=== PATIENT | male | born 1945 | race Caucasian/White ===

== ENCOUNTER 2023-04-29 13:25 | Emergency (ER) | payer BC, SELFPAY ==
[2023-04-29 13:28] VITALS: BP 114/68
[2023-04-29] MEDS: NSS 1000 IV (13:54)
[2023-04-29 14:00] LABS: % Basophils 0.7 % (0-2); % Eosinophils 1.2 % (0-6); % Immature Granulocytes 0.4 % (0-0.5); % Lymphocytes 18.4 % (20.5-51.1); % Monocytes 7.7 % (1.7-9.3); % Neutrophils 71.6 % (42.2-75.2); Absolute Basophils 0.1 10^3/uL (0-0.2); Absolute Eosinophils 0.1 10^3/uL (0-0.7); Absolute Lymphocytes 1.4 10^3/uL (1.2-3.4); Absolute Monocytes 0.6 10^3/uL (0.1-0.6); Absolute Neutrophils 5.4 10^3/uL (1.4-6.5); Hematocrit 34.5 % (39.0-52.0); Hemoglobin 11.5 g/dL (13.0-18.0); Mean Corp Hgb Conc. 33.3 g/dL (33.0-37.0); Mean Corpuscular Hgb 29.1 pg (27.0-31.0); Mean Corpuscular Volume 87.3 fL (80.0-94.0); Mean Platelet Volume 9.6 fL (7.4-10.4); Nucleated Red Blood Cells % 0 % (-); Platelet Count 416 10^3/uL (130-400); Red Blood Cell Count 3.95 10^6/uL (4.70-6.10); Red Cell Dist. Width 18.3 % (11.5-14.5); White Blood Cell Count 7.6 10^3/uL (4.8-10.8)
[2023-04-29 14:11] LABS: ALT (SGPT) 36 U/L (0-50); AST (SGOT) 36 U/L (17-59); Albumin 3.5 g/dl (3.5-5.0); Alkaline Phosphatase 153 U/L (38-126); Blood Urea Nitrogen 13 mg/dl (9-20); Carbon Dioxide 27 mmol/L (22-30); Chloride 96 mmol/L (98-107); Glucose 75 mg/dl (70-99); Potassium 4.9 mmol/L (3.5-5.1); Sodium 129 mmol/L (135-145); Total Bilirubin 0.4 mg/dl (0.2-1.3); Total Protein 7.3 g/dl (6.3-8.2); eGFR > 60.00
[2023-04-29 16:12] VITALS: BP 120/68
[2023-04-29 17:00] VITALS: BP 120/71
--- NOTE | 2023-04-29 17:36 | ED.GENMED ---
History of Present Illness
General
Chief Complaint: Dehydration Symptoms
Source: patient
Exam Limitations: none
Time Seen by Provider: 04/29/23 17:12
Travel History
Have you had any contact with someone who has COVID-19?: No
Do you have any symptoms of coronavirus? Fever > 100 degrees, chills, cough, shortness of breath, sore throat, loss of taste or smell, muscle aches, or headache?: No
History of Present Illness
History of Present Illness:
77-year-old male with history of stomach cancer has feeding tube and OBED drain presents with episode of weakness today with nausea. He has been having difficulty with his feeds through his tube causing indigestion. He has not been giving himself
enough nutrition at home. Visiting nurse came today had an episode of this nausea and was sent here for further evaluation no chest pain or shortness of breath. Has been waiting quite some time and since waiting he did receive a bag of fluids and
since then he is feeling much better and has complaints offered.
Past History
Past History
ED Past Medical History: CAD, Cancer (Esophageal and stomach), HTN, Hypercholesterolemia, Hypothyroidism and Other (Anemia)
ED Past Surgical History: None, Cardiac (Stents X 6), Orthopedic ([place] rotator cuff , left knee surgery, ORIF L ankle, ) and Other (Hernia, G- tube, Port, Laparotomy)
Social History
Tobacco: Former smoker
Alcohol: None
Drug: None
Personal:
Living: with family
Phy Exam
Physical Exam
Physical Exam:
General: Slightly cachectic appearing male no acute respiratory distress
HEENT: Normocephalic atraumatic heart: Regular rate and rhythm no murmurs
Lungs: Clear to auscultation bilaterally no wheezing
Abdomen: Soft nontender PEG tube noted OBED drain noted extremities: No cyanosis
Skin: Warm no rash
Course
Orders/Labs/Results
Orders:
Orders
04/29/23 13:31
EKG [Electrocardiogram (*1)] Urgent
Reason for Study: Fatigue / Weakness
EKG- Treatment ONCE
04/29/23 13:33
0.9% Sodium Chloride 1000 ml [Nss] 1,000 ml IV BOLUS
04/29/23 13:52
Complete Blood Count/With Diff Urgent
Comprehensive Metabolic Panel Urgent
04/29/23 17:46
Urinalysis Reflex To Culture Urgent
Date Specimen was Collected: 04/29/23
Time Specimen was Collected: 17:29
Abnormal Lab Results
04/29/23
13:52
RBC 3.95 L 10^6/uL
(4.70-6.10)
Hgb 11.5 L g/dL
(13.0-18.0)
Hct 34.5 L %
(39.0-52.0)
RDW 18.3 H %
(11.5-14.5)
Plt Count 416 H 10^3/uL
(130-400)
Lymphocytes % 18.4 L %
(20.5-51.1)
Sodium 129 L mmol/L
(135-145)
Chloride 96 L mmol/L
(98-107)
Creatinine 0.6 L mg/dL
(0.7-1.3)
Alkaline Phosphatase 153 H U/L
(38-126)
04/29/23 13:52
04/29/23 13:52
Vital Signs
Initial and Last Documented VS:
Initial Vital Signs
Temp Pulse Resp BP Pulse Ox
98.7 F 75 18 114/68 97
04/29/23 13:28 04/29/23 13:28 04/29/23 13:28 04/29/23 13:28 04/29/23 13:28
Last Documented Vital Signs
Temp Pulse Resp BP Pulse Ox
98.7 F 75 18 118/74 97
04/29/23 13:28 04/29/23 13:28 04/29/23 13:28 04/29/23 18:00 04/29/23 18:15
MDM/Problems Addressed
Differential Diagnosis Includes:
Episode of weakness and nausea today now feeling much better after IV hydration. He did have some dysuria this morning. Will check urinalysis. Labs otherwise without significant finding. I suspect underlying dehydration given his lack of feeds
over the last 2 days.
*Critical Care Note
Total Time (30-74mins, 75-104mins- exclusive of procedures): Not Applicable
Update Note
Update Note:
Urinalysis negative. Reassuring workup here otherwise. Patient was dehydrated but not feeling much better after IV hydration. Stable for discharge
ED Attending Note
-
Portions of this chart may have been created with voice recognition software.� Occasional wrong word or��sound alike� substitutions may have occurred due to the inherent limitations of voice recognition software.
Discharge Plan
Departure
Patient Disposition: Home (Routine Discharge)
Date of Disposition: 04/29/23
Time of Disposition: 18:45
Patient with high blood pressure during this ER visit?: No
Discharge Problem:
Dehydration
Instructions: Dehydration, Adult (DC)
Prescriptions:
No Action
levothyroxine [Synthroid] 50 MCG tablet
50 mcg feeding tube DAILY
rosuvastatin 20 mg Tablet
20 mg feeding tube HS
pantoprazole 40 mg Tablet,Delayed Release (Dr/Ec)
40 mg PO DAILY
Rx Instructions:
04/11/2023, via feeding tube.
allopurinol 300 mg Tablet
300 mg feeding tube DAILY
aspirin 81 mg Tablet,Delayed Release (Dr/Ec)
81 mg feeding tube DAILY
polyethylene glycol 3350 [Miralax] 17 gram Powder In Packet
17 g feeding tube DAILY PRN (Reason: constipation)
sucralfate 100 mg/mL Suspension
10 ml PO BID PRN (Reason: ulcer)
Rx Instructions:
04/11/2023, taken PO.
ondansetron 8 mg Tablet,Disintegrating
8 mg feeding tube Q12H PRN (Reason: nausea)
oxycodone 5 mg Tablet
5 mg feeding tube HS
Patient Comments:
04/11/2023, pt. filled this medication on 04/03/2023 for 28 tablets according to PDMP.
metoprolol tartrate 25 mg Tablet
25 mg feeding tube BID
Tylenol liquid
1 dose feeding tube Q6HPRN PRN (Reason: mild pain)
Referrals:
Geovanni Gruber MD [Family Provider] -
Activity Restrictions/Additional Instructions:
Stay hydrated. Continue with your feedings. Return if worse otherwise follow-up with your specialist
Interventions
Interventions:
*Risk Screen - Suicide Last Done: 04/29/23 13:28
*General Assessment Last Done: 04/29/23 13:28
*Neglect/Abuse Screening Last Done: 04/29/23 13:28
*ED COVID-19 Vaccine History Last Done: 04/29/23 13:28
ED- Cardiac Assessment Last Done: 04/29/23 16:13
ED- Neurological Assessment Last Done: 04/29/23 16:13
ED- Pulmonary Assessment Last Done: 04/29/23 16:13
[2023-04-29 18:00] VITALS: BP 118/74
[2023-04-29 18:05] LABS: Urine Albumin Negative (Neg - Trace); Urine Bilirubin Negative (Negative); Urine Character Slightly Cloudy (Clear); Urine Color Yellow; Urine Glucose Negative (Negative); Urine Ketone Negative (Negative); Urine Leukocyte Negative (Negative); Urine Nitrite Negative (Negative); Urine Occult Blood Negative (Negative); Urine Specific Gravity 1.015 (<1.030); Urine Urobilinogen Negative (Neg - 1+)
== END 2023-04-29 18:54 | disposition home or self-care (01) ==
LOC: EMR 13:25
PROVIDERS: Emergency Medicine; Physician Assistant; EMERGENCY PHYSICIAN Emergency Medicine; FAMILY PHYSICIAN Internal Medicine Geriatric Medicine
DX: E86.0 Dehydration (principal); Z87.891 Personal history of nicotine dependence
CPT/HCPCS: 99284; 96360; 96361; 80053; 81003; 85025; 93005

== ENCOUNTER 2023-07-07 20:04 | Inpatient (IN) | payer MEDICARE, BC, SELFPAY ==
[2023-07-07] VITALS (7 sets, daily range): BP systolic 118–150; BP diastolic 71–93; BMI 23.5
[2023-07-07 14:42] LABS: Glucose - Point of Care 54 mg/dl (70-99)
--- NOTE | 2023-07-07 14:55 | ED.GENMED ---
History of Present Illness
General
Chief Complaint: Blood Sugar Problem
Source: patient and family
Exam Limitations: none
Time Seen by Provider: 07/07/23 14:43
Nursing documentation reviewed up to this point in time: agreed with
Travel History
Have you had any contact with someone who has COVID-19?: No
Do you have any symptoms of coronavirus? Fever > 100 degrees, chills, cough, shortness of breath, sore throat, loss of taste or smell, muscle aches, or headache?: No
History of Present Illness
History of Present Illness:
77-year-old male presents to the emergency department complaining of dizziness. He had low blood sugar yesterday that was in the 20s, and was called to come to the emergency department today. He has a history of gastric cancer, and was on TPN.
Past History
Past History
ED Past Medical History: CAD, Cancer (Esophageal and stomach), HTN, Hypercholesterolemia, Hypothyroidism and Other (Anemia)
ED Past Surgical History: None, Cardiac (Stents X 6), Orthopedic ([place] rotator cuff , left knee surgery, ORIF L ankle, ) and Other (Hernia, G- tube, Port, Laparotomy)
Social History
Tobacco: Former smoker
Alcohol: None
Drug: None
Personal:
Living: with family
Review of Systems
Review of Systems
Allergies reviewed?: Yes
All Other Systems: Not applicable
Constitutional: Reports no symptoms
EENT: Reports no symptoms
Respiratory: Reports no symptoms
Cardiac: Reports no symptoms
ABD/GI: Reports no symptoms
: Reports no symptoms
Musculoskeletal: Reports no symptoms
Skin: Reports no symptoms
Neurological: Reports weakness and numbness
Endocrine: Reports no symptoms
Hematologic/Lymphatic: Reports no symptoms
Psychiatric: Reports no symptoms
Phy Exam
Physical Exam
Physical Exam:
Physical Exam
General: no apparent distress, not acutely ill
Neck: supple. no meningeal signs. normal posterior pharynx
Heart: s1/s2 regular rate and rhythm, no murmur. equal radial
pulses.
HEENT: Pupils equal round reactive to light, EOMI
Lungs: no acute respiratory distress. clear bilaterally
Abdomen: normal bowel sounds. not tender. no CVAT, healing left-sided gastrostomy tube site
Neuro: alert and oriented. no focal neurological deficits cranial nerves II through XII intact
Skin: no rash
Psychiatric: well kept. interactive and cooperative
Extremities: no edema. no calf tenderness. negative homans. good distal pulses
Course
Orders/Labs/Results
Orders:
Orders
07/07/23
Electrocardiogram (*1) Stat
Comment: ALREADY DONE
07/07/23 14:47
CBC/With Diff [Complete Blood Count/With Diff] Urgent
CMP [Comprehensive Metabolic Panel] Urgent
Troponin I Urgent
07/07/23 16:05
Glucose Urgent
07/07/23 18:35
Dextrose 50%-Water [Dextrose 50% Syringe] 25 grams IV NOW STA
07/07/23 19:36
Admit/Transfer Patient As Directed
Co-Sign Provider:
Level of Care: Inpatient admission
Assign to:: Medical/Surgical
Physician / Group: shara meza
Diagnosis: Recurrent hypoglycemia unclear
Reason for Hospitalization: Recurrent hypoglycemia, unclear
Expected length of stay greater than two midnights?: Yes
ELOS- Estimated Length of Stay in days: 3
I certify the patient meets the requirements for IP care: Yes
07/07/23 19:44
Cortisol, Random Routine
07/07/23 19:46
Code Status As Directed
Resuscitation Status: Full Code
07/07/23 20:00
Dextrose 5%/0.9%Sodchl 1000 ml [D5/0.9% Sodium Chloride] 1,000 ml IV 60 mls/hr
Abnormal Lab Results
07/07/23 07/07/23 07/07/23
14:38 14:47 15:23
RBC 3.57 L 10^6/uL
(4.70-6.10)
Hgb 11.1 L g/dL
(13.0-18.0)
Hct 33.4 L %
(39.0-52.0)
MCH 31.1 H pg
(27.0-31.0)
RDW 18.1 H %
(11.5-14.5)
MPV 12.0 H fL
(7.4-10.4)
Absolute Monos (auto) 0.9 H 10^3/uL
(0.1-0.6)
Lymphocytes % 18.2 L %
(20.5-51.1)
Monocytes % 13.1 H %
(1.7-9.3)
BUN 26 H mg/dl
(9-20)
Creatinine 0.4 L mg/dL
(0.7-1.3)
Glucose 33 L* mg/dl
(70-99)
Albumin 3.4 L g/dl
(3.5-5.0)
POC Glucose 54 L* mg/dl 69 L mg/dl
(70-99) (70-99)
07/07/23 07/07/23
18:33 19:09
RBC
Hgb
Hct
MCH
RDW
MPV
Absolute Monos (auto)
Lymphocytes %
Monocytes %
BUN
Creatinine
Glucose
Albumin
POC Glucose 65 L mg/dl 145 H mg/dl
(70-99) (70-99)
07/07/23 14:47
07/07/23 16:05
Vital Signs
Initial and Last Documented VS:
Initial Vital Signs
Temp Pulse Resp BP Pulse Ox
98.5 F 75 18 120/73 96
07/07/23 14:45 07/07/23 14:45 07/07/23 14:45 07/07/23 14:45 07/07/23 14:45
Last Documented Vital Signs
Temp Pulse Resp BP Pulse Ox
98.5 F 0 18 150/86 99
07/07/23 14:45 07/07/23 19:15 07/07/23 14:45 07/07/23 19:00 07/07/23 18:51
MDM/Problems Addressed
Differential Diagnosis Includes:
Hypoglycemia, dysrhythmia
MDM/Problems Addressed:
77-year-old male with hypoglycemia, due to poor absorption and TPN likely not sufficient. Admit to hospitalist.
Chronic conditions affecting care: Previous abdomnial surgery and Cancer
Acute Exacerbation and/or Progression of Chronic Illness: Previous abdomnial surgery and Cancer
*Pulse Oximetry
Patient hypoxic: no
*EKG
Interpreted by ED Provider?: Yes
EKG Intrepretation Date: 07/07/23
EKG Intrepretation Time: 14:46
Interpretation: normal
Comparison EKG: no changes
Heart Rate: 76
Rate: normal
Rhythm: sinus
Russell: normal axis
Interval: normal interval
QRS Pattern: normal QRS
Ischemia: no ischemia
*Director Vaccine Interpretation
Rate: normal
Interpretation: normal
Heart Rate: 76
Rhythm: sinus
*Critical Care Note
Total Time (30-74mins, 75-104mins- exclusive of procedures): Not Applicable
Patient Management
Social determinants of health affecting care: Living situation
Discussion with other providers: Hospitalist
Escalation/DeEscalation of care consider admission/obs:
admit indicated
ED Attending Note
-
Portions of this chart may have been created with voice recognition software.� Occasional wrong word or��sound alike� substitutions may have occurred due to the inherent limitations of voice recognition software.
Discharge Plan
Departure
Patient Disposition: Admit
Date of Disposition: 07/07/23
Time of Disposition: 18:49
Admit to: Telemetry
Presentation/result/management discussed w/ accepting MD/DO: Hospitalist
Patient with high blood pressure during this ER visit?: Yes
Condition: Good
Discharge Problem:
Hypoglycemia, Esophageal cancer
Interventions
Interventions:
*Risk Screen - Suicide Last Done: 07/07/23 14:35
*General Assessment Last Done: 07/07/23 14:35
*Neglect/Abuse Screening Last Done: 07/07/23 14:35
ED- Fall Risk Assessment Last Done: 07/07/23 14:50
*ED COVID-19 Vaccine History Last Done: 07/07/23 14:58
ED- Neurological Assessment Last Done: 07/07/23 14:50
[2023-07-07 15:07] LABS: % Basophils 0.5 % (0-2); % Eosinophils 0.9 % (0-6); % Immature Granulocytes 0.3 % (0-0.5); % Lymphocytes 18.2 % (20.5-51.1); % Monocytes 13.1 % (1.7-9.3); Absolute Eosinophils 0.1 10^3/uL (0-0.7); Absolute Lymphocytes 1.2 10^3/uL (1.2-3.4); Absolute Monocytes 0.9 10^3/uL (0.1-0.6); Absolute Neutrophils 4.3 10^3/uL (1.4-6.5); Hematocrit 33.4 % (39.0-52.0); Hemoglobin 11.1 g/dL (13.0-18.0); Mean Corp Hgb Conc. 33.2 g/dL (33.0-37.0); Mean Corpuscular Hgb 31.1 pg (27.0-31.0); Mean Corpuscular Volume 93.6 fL (80.0-94.0); Nucleated Red Blood Cells % 0 % (-); Platelet Count 238 10^3/uL (130-400); Red Blood Cell Count 3.57 10^6/uL (4.70-6.10); Red Cell Dist. Width 18.1 % (11.5-14.5); White Blood Cell Count 6.5 10^3/uL (4.8-10.8)
[2023-07-07 15:25] LABS: Glucose - Point of Care 69 mg/dl (70-99)
[2023-07-07 15:31] LABS: ALT (SGPT) 22 U/L (0-50); AST (SGOT) 28 U/L (17-59); Albumin 3.4 g/dl (3.5-5.0); Alkaline Phosphatase 101 U/L (38-126); Blood Urea Nitrogen 26 mg/dl (9-20); Calcium 8.8 mg/dl (8.4-10.2); Carbon Dioxide 25 mmol/L (22-30); Chloride 102 mmol/L (98-107); Estimated Creatinine Clearance 98 ml/min; Glucose 33 mg/dl (70-99); Potassium 4.5 mmol/L (3.5-5.1); Sodium 135 mmol/L (135-145); Total Bilirubin 0.3 mg/dl (0.2-1.3); Total Protein 6.6 g/dl (6.3-8.2); eGFR > 60.00
[2023-07-07 15:32] LABS: Troponin I < 0.012 ng/ml
[2023-07-07 17:04] LABS: Glucose 78 mg/dl (70-99)
[2023-07-07 18:34] LABS: Glucose - Point of Care 65 mg/dl (70-99)
[2023-07-07] MEDS: DEXTROSE 50% SYRINGE 25 GRAMS IV (18:38)
--- NOTE | 2023-07-07 19:06 | PHANOTE ---
MED REC NOT- PATIENT STATED THAT HE STOPPED TAKEN CRESTOR 20MG HS CAUSE THERE WERE NO REFILLS BUT [facility] SHOWS FILLED ON 07/01/[address] WILSON
--- NOTE | 2023-07-07 19:07 | HPS.HSE ---
Family Physician
-
Family Physician: Geovanni Gruber
Chief Complaint
-
Hypoglycemia with symptoms of lightheadedness and nausea
History of Present Illness
77-year-old male from home with reported lightheadedness and nausea. He was noted to be hypoglycemic with blood sugar of 33 was given D50 IV in ER with mild improvement. He reports he has had on and off hypoglycemia since starting TPN 3 weeks ago.
He also drinks Ensure clear apple 3 times daily and is able to tolerate other foods. He has history of esophageal cancer status post stent, total gastrectomy December 2023. He had prior J-tube which was removed 2 weeks ago at [facility]. He has an open site to his abdomen that is draining bile. He applies Aquaphor around old J-tube site. He denies headache, fever, chills, chest pain, palpitations, shortness of breath, cough, abdominal pain, vomiting, diarrhea, urinary
symptoms other past medical history includes distal esophageal cancer with stent removal and replacement, current TPN, intra-abdominal abscess near spleen status post drainage March 2023, vasovagal episode secondary to dehydration, SIADH, HTN,
GERD, hematemesis, chronic GI blood loss from esophageal bleeding, iron deficiency anemia, DANICA, portal vein thrombosis, HLD, hypothyroidism, CAD status post PCI, gout
Medical History
Past Medical History
Past Medical History: Reports Other
Additional Past Medical History:
Hypoglycemic episodes June 2023 [facility]
Esophageal cancer GE junction
Chronic esophageal ulcers
Dyslipidemia
Coronary artery disease status post stent
Acquired hypothyroidism
Hypertensive heart disease without CHF
Hypertension
Gout
History of septic shock with bacteremia
Past Surgical History: Reports Other
Additional Past Surgical History:
J-tube removal June 2023 for [facility]
Total gastrectomy with esophageal jejunal bypass
Cholecystectomy
Hernia repair
Multiple EGD
Cardiac cath and multiple stent
Port right upper chest wall
Social History
Unable to obtain full social history at this time due to: Other
Tobacco: Non-smoker
Alcohol: None
Drug: None
Personal:
Living: With Family ()
Employment: Retired
Family History
Family History: Other
Allergies / Home Medications
Allergies reflects when Allergies were last updated in [facility].
Home Medications with original date entered in [facility]
Allergy/Medication List:
Allergies
Allergy/AdvReac Type Severity Reaction Status Date / Time
No Known Allergies Allergy Verified 07/07/23 14:41
Home Medications
levothyroxine 50 mcg tablet (Synthroid) 50 mcg PO DAILY Thyroid 03/04/09
allopurinol 300 mg tablet 300 mg PO DAILY Gout 08/25/22
metoprolol tartrate 25 mg tablet 25 mg PO BIDPRN PRN BLOOD PRESSURE 04/11/23
polyethylene glycol 3350 17 gram oral powder packet (Miralax) 17 g PO DAILYPRN PRN constipation 04/11/23
sucralfate 100 mg/mL oral suspension 10 ml PO QID 04/11/23
apixaban 5 mg tablet (Eliquis) 5 mg PO BID 07/07/23
cholestyramine (with sugar) 4 gram powder for susp in a packet 1 ea PO BID 07/07/23
omeprazole 40 mg capsule,delayed release 40 mg PO DAILY 07/07/23
Review of Systems
-
History Source: Patient
A 12 point ROS was completed and negative except as noted: Yes
Constitutional: Denies Fever or Chills
EENT: Reports Sore Throat (Chronic); Denies Runny Nose
Respiratory: Denies Cough or Trouble Breathing
Cardiac: Denies Chest Pain, Diaphoresis, Palpitations or Syncope
Abdomen/GI: Reports Nausea; Denies Abdominal Pain, Vomiting, Diarrhea, Constipated or Bloody Stools
: Reports Other (Chronic drainage bile from prior J-tube site); Denies Dysuria, Frequency, Flank Pain or Incontinence
Musculoskeletal: Denies Joint Pain or Edema
Skin: Denies Itching or Rash
Neurological: Reports Dizzy (With hyperglycemia); Denies Headache or Weakness
Endocrine: Reports No Symptoms
Hematologic/Lymphatic: Reports No Symptoms
Psych: Reports Calm
Physical Exam
Vital Signs
Vital Signs
Temp Pulse Resp BP Pulse Ox
98.5 F 75 18 120/73 96
07/07/23 14:45 07/07/23 14:45 07/07/23 14:45 07/07/23 14:45 07/07/23 14:45
Physical Exam
General: Comfortable and Conversant; No Pain, Fever or Chills
HEENT: NormoCephalic, Anicteric, Moist mucous membranes, PERRLA, [place] Conjunctivae and No Ptosis
Respiratory: Clear; No Wheezes, Rales or Rhonchi
Cardiac: S1/S2 and Regular Rhythm; No Murmur, Rub, Gallop or Peripheral Edema
GI: Soft, Non Tender, Non Distended, Normal Bowel Sounds and Other (Chronic drainage bile from prior J-tube site)
Rectal: Deferred by Provider
Genito-urinary: Deferred by me
Musculoskeletal: No Clubbing, No Cyanosis and No Edema
Skin: Warm, Dry and Other (Port present right upper chest wall); No Rash or Jaundice
Neuro: AO x 3, No Motor Deficits, Nonfocal/grossly intact, Cranial Nerves Intact and Other (Chronic TABLE MOUNTAIN right ear); No Slurred Speech, Facial Droop or Tremors
Psych: Calm
Laboratory Results
-
07/07/23 14:47
07/07/23 16:05
Laboratory Results
Total Bilirubin 0.3 mg/dl (0.2-1.3) 07/07/23 14:47
AST 28 U/L (17-59) 07/07/23 14:47
ALT 22 U/L (0-50) 07/07/23 14:47
Alkaline Phosphatase 101 U/L (38-126) 07/07/23 14:47
Troponin I < 0.012 ng/ml 07/07/23 14:47
Impression/Plan
-
Impression/plan:
Admit to [facility]
#Acute recurrent hypoglycemia unclear
Admitted 2 weeks ago [facility] also with hypoglycemia at that time
BS 33 > 78 post D50 25 gm IV push
-Accu-Cheks every 2 hours
-As needed IV dextrose
-D5 NSS 60 cc an hour
-Continue current TPN and Ensure alive 3 times daily
-Consult endocrine
-Consult dietary for TPN
-Consult GI for TPN
-Check random cortisol
#Distal esophageal cancer on current TPN
#History of stent placement and removal
J-tube removal 2 weeks ago June 2023 [facility]
-Follows with oncology [facility] Dr. Retana [phone]
-Patient currently on TPN, and Ensure clear apple 3 times daily
-Continue Colesytramine mixed with applesauce
#Hx intra-abdominal abscess near spleen March 2023
-Had abdominal abscess drained at [facility]
#J-tube removal with residual opening to abdomen
-Apply Aquaphor around site with 4 x 4's
#History of vasovagal episode secondary to dehydration
#Hx SIADH
NA 135
#HTN
-Continue metoprolol tartrate 25 mg twice daily
#GERD
#Hx hematemesis(chronic GI blood loss from esophageal bleeding)
History of blood transfusion March 2023
-Hgb 11.1 stable
-Follows at [facility]
-Patient has no plans for Endo recall at this time
-Continue PPI, sucralfate 10 mL p.o. 4 times daily
#Iron deficiency anemia
Hgb 11.1
#DANICA
-No current CPAP
#Portal vein thrombosis�improved on CT 12/10/2022
-Continue MANAGER STONE Eliquis
#HLD
-Continue Crestor 20 mg daily
#Hypothyroidism
-Continue levothyroxine 50 mcg daily
#CAD status post PCI
-Continue metoprolol
#Gout
-Continue allopurinol 3 mg daily
#TABLE MOUNTAIN right ear
#DVT prophylaxis
Continue MANAGER STONE Eliquis
Full code
[2023-07-07 19:11] LABS: Glucose - Point of Care 145 mg/dl (70-99)
--- NOTE | 2023-07-07 20:00 | W.PN.UPDATE ---
Update Note
Progress Note Update
This note serves as an addendum to the H&P by health editor RUKHSANA Adilene TORRESURGIS on 07/07/23
HPI
77M HX Esophageal and Gastric CA , S/p gastectomy in Dec 2022 s/p J Tube removal 2weeks ago at [facility] , currently on TPN plus Ensure clear tid and POs as tolerated pw nausea, lightheadedness associated recurent hypoglycemic episode
No prior DM, Adrenal insufficiency
PHX
- S/p gastrectomy in Dec 2022 s/p J Tube removal 2weeks ago at [facility] ,
- Hx GE junction CA with surgical /2023, prior chemo
-post-op leak with stent in place 01/2023 then revision 02/2023
-Hematemesis
-Possible 9cm intra-abd abscess on CT scan 04/12
-New liver lesion concerning for metastatic disease on CT scan 04/12
-Jtube for nutrition
-wt loss
-GERD on carafate
-CAD with stent
-HTN
-hypercholesterolemia
-hypothyroidism
-DANICA
-portal vein thrombosis improved on 11/2022 CT
Known to Surgical oncology at [facility] Dr. Retana [phone].
Reviewed VS:
Vital Signs
Temp Pulse Resp BP Pulse Ox
98.5 F 0 18 150/86 99
07/07/23 14:45 07/07/23 19:15 07/07/23 14:45 07/07/23 19:00 07/07/23 18:51
PE
Gen: Non toxic , calm , not diaphoretic
HEENT: anicteric
Neck: supple
Lungs: CTA
Cor: RRR S1 S2
Abdomen: healing left-sided gastrostomy tube site
OCEAN [employer]ING GUIDE: NFND
MS: no edema
Psych: calm
Data
Abnormal Lab Results
07/07/23 07/07/23 07/07/23
14:38 14:47 15:23
RBC 3.57 L
Hgb 11.1 L
Hct 33.4 L
MCH 31.1 H
RDW 18.1 H
MPV 12.0 H
Absolute Monos (auto) 0.9 H
Lymphocytes % 18.2 L
Monocytes % 13.1 H
BUN 26 H
Creatinine 0.4 L
Glucose 33 L*
Albumin 3.4 L
POC Glucose 54 L* 69 L
07/07/23 07/07/23
18:33 19:09
RBC
Hgb
Hct
MCH
RDW
MPV
Absolute Monos (auto)
Lymphocytes %
Monocytes %
BUN
Creatinine
Glucose
Albumin
POC Glucose 65 L 145 H
Last hospitalist admission:04/11/23 - 04/12/23
ASSESSMENT & PLAN
Recurrent symptomatic hypoglycemia of unclear etiology - on TPN 12hrs Plus ensure and POs
Admitted 2 weeks ago [facility] also with hypoglycemia at that time
BS 33 > 78 post D50 25 gm IV push
check random cortisol
-Accu-Cheks every 2 hours
-As needed IV dextrose
-D5 NSS 60 cc an hour
- cont. current TPN and Ensure alive 3 times daily
-Consult: Endo, GI and Rn Hemodialysis
DVT Px ; chr eliquis
Full code
IP MS
[2023-07-07] MEDS: D5/0.9% SODIUM CHLORIDE 1000 IV (20:57)
[2023-07-07 21:47] LABS: Cortisol, Random 4.5 ug/dl
[2023-07-07 22:04] LABS: Glucose - Point of Care 86 mg/dl (70-99)
[2023-07-07] MEDS: PROTONIX IV 40 MG IV (23:05)
[2023-07-07] MEDS: CARAFATE SUSPENSION 1 GM PO (23:05)
[2023-07-07] MEDS: ELIQUIS 5 MG PO (23:05)
[2023-07-07] MEDS: QUESTRAN LIGHT/PREVALITE 4 GRAMS PO (23:06)
[2023-07-07] MEDS: NSS (PRESERVATIVE FREE) 10 ML IV (23:06)
[2023-07-08 00:54] LABS: Glucose - Point of Care 60 mg/dl (70-99)
--- NOTE | 2023-07-08 04:47 | DOWNTIME ---
There was a [employer] Downtime on 07/08/2023 from 0100 to 07/08/2023 at 0439. Downtime documentation of patient's care, including medication administrations, has been reconciled in the electronic record per guidelines. Refer to the
patient's paper chart under the miscellaneous tab to see printed paper medication records and downtime forms.
[2023-07-08 06:00] VITALS: BMI 22.3
[2023-07-08 06:17] LABS: % Basophils 0.5 % (0-2); % Eosinophils 3.8 % (0-6); % Immature Granulocytes 0.3 % (0-0.5); % Lymphocytes 24.5 % (20.5-51.1); % Monocytes 15.3 % (1.7-9.3); % Neutrophils 55.6 % (42.2-75.2); Absolute Eosinophils 0.1 10^3/uL (0-0.7); Absolute Lymphocytes 0.9 10^3/uL (1.2-3.4); Absolute Monocytes 0.6 10^3/uL (0.1-0.6); Hematocrit 30.5 % (39.0-52.0); Hemoglobin 10.3 g/dL (13.0-18.0); Mean Corp Hgb Conc. 33.8 g/dL (33.0-37.0); Mean Corpuscular Hgb 31.1 pg (27.0-31.0); Mean Corpuscular Volume 92.1 fL (80.0-94.0); Mean Platelet Volume 11.7 fL (7.4-10.4); Nucleated Red Blood Cells % 0 % (-); Platelet Count 205 10^3/uL (130-400); Red Blood Cell Count 3.31 10^6/uL (4.70-6.10); White Blood Cell Count 3.7 10^3/uL (4.8-10.8)
[2023-07-08] MEDS: SYNTHROID 50 MCG PO (06:17)
[2023-07-08 06:21] LABS: Glucose - Point of Care 90 mg/dl (70-99)
[2023-07-08 06:40] LABS: Blood Urea Nitrogen 16 mg/dl (9-20); Calcium 8.7 mg/dl (8.4-10.2); Carbon Dioxide 26 mmol/L (22-30); Chloride 107 mmol/L (98-107); Estimated Creatinine Clearance 95 ml/min; Glucose 77 mg/dl (70-99); Potassium 4.3 mmol/L (3.5-5.1); Sodium 133 mmol/L (135-145); eGFR > 60.00
[2023-07-08 07:00] VITALS: BP 131/91
[2023-07-08 07:12] LABS: TSH Reflex To Free T4 3.01 uIU/ml (0.47-4.68)
--- NOTE | 2023-07-08 07:51 | W.PN.HOSP.TC ---
Addendum entered and electronically signed by Laverne Elena MD 07/08/23 09:21:
Examined pt's J tube opening. No active extravasation or leakage through opening currently. No surrounding skin erythema. Pt's Abd exam is benign (soft, non-tender, normal BS).
Pt states that his J tube opening only occasionally leaks and that his surgeon is aware of this.
He last saw his surgeon 5 days DEPUTY BRAND INSPECTOR and is due to see her in 1-2 weeks.
Since J tube opening site is at baseline (confirmed with pt), no need for further work up at this time (agreed by patient).
Addendum entered and electronically signed by Laverne Elena MD 07/08/23 09:02:
d/w GI team, will help as curbside for TPN order, no need for formal consult. Consult removed
Original Note:
Today's Communication/Plan
-
see A/P
Assessment / Plan
Assessment / Plan
HPI: 77-year-old male with PMH distal esophageal cancer with stent, current TPN, intra-abdominal abscess near spleen status post drainage March 2023, vasovagal episode secondary to dehydration, SIADH, HTN, GERD, chronic GI blood loss from
esophageal bleeding, iron deficiency anemia, DANICA, portal vein thrombosis, HLD, hypothyroidism, CAD status post PCI, gout; from home p/w lightheadedness and nausea.
He was noted to be hypoglycemic with blood sugar of 33 was given D50 IV in ER with mild improvement. He reports he has had on and off hypoglycemia since starting TPN 3 weeks ago. He also drinks Ensure clear apple 3 times daily and is able to
tolerate other foods.
A/P:
# Acute recurrent hypoglycemia
Admitted 2 weeks ago [facility] also with hypoglycemia at that time
BS improved from 33 to 78 after D50 push
Acont Accu-Cheks, now can be AC HS
Cont D5 NSS 60 cc/hr
Continue TPN, regular diet with Ensure alive 3 times daily
Endocrine CS placed by overnight team
GI CS placed for TPN by overnight team
Random cortisol low at 4.5, check stim test
TSH WNL at 3.01
# Distal esophageal cancer currently on TPN
# History of stent placement and removal
J-tube removal 2 weeks ago June 2023 [facility]
Follows with oncology [facility] Dr. Retana [phone]
Patient currently on TPN, and Ensure clear apple 3 times daily
Continue Colesytramine mixed with applesauce
# Hx intra-abdominal abscess near spleen March 2023, s/p abscess drainage at [facility]
# J-tube removal with residual opening to abdomen
# History of vasovagal episode secondary to dehydration
# HTN
Continue metoprolol tartrate 25 mg twice daily
BP stable
# GERD
# Hx chronic GI blood loss from esophageal bleeding
Hgb 11.1 stable
Follows at [facility]
Continue PPI, sucralfate 10 mL p.o. 4 times daily
# Iron deficiency anemia
Hgb 11.1
# DANICA
No current CPAP
# Portal vein thrombosis�improved on CT 12/10/2022
Continue DEPUTY BRAND INSPECTOR Eliquis
# HLD
Continue Crestor 20 mg daily
# Hypothyroidism
Continue levothyroxine 50 mcg daily
# CAD status post PCI
Continue metoprolol
# Gout
Continue allopurinol 3 mg daily
# QAGAN TAYAGUNGIN right ear
DVT prophylaxis: Continue DEPUTY BRAND INSPECTOR Eliquis
Full code
DW RN
updated on the phone
total time spent 51 min
Anticipated Discharge: 24 - 48 hours
Subjective/Interval History
-
Date of Service: July 08, 2023
Objective Data
-
Labs:
Laboratory Results
07/08/23
04:48
WBC 3.7 L
Hgb 10.3 L
Hct 30.5 L
Plt Count 205
Sodium 133 L
Potassium 4.3
Chloride 107
Carbon Dioxide 26
BUN 16
Creatinine 0.5 L
Glucose 77
Calcium 8.7
Vital Signs:
Vital Signs
Temp Pulse Resp BP Pulse Ox
36.5 C 62 20 122/71 99
07/07/23 23:56 07/07/23 23:56 07/07/23 23:56 07/07/23 23:56 07/08/23 05:20
I&O
07/07/23 07/08/23 07/09/23
06:59 06:59 06:59
Intake Total 1200 / 1200
Output Total 1050 / 1050
Balance 150 / 150
Review of Systems
-
All other systems: Reviewed and negative
Physical Exam
-
General: Well Developed, No Apparent Distress, Comfortable and Conversant
HEENT: Normocephalic, Atraumatic, Moist Mucous Membranes and Hearing Impaired
Respiratory: Clear to Auscultation and Non Labored Respirations; Negative Accessory Resp Muscle Use
Cardiac: Regular Rhythm and S1/S2
GI: Soft, Nontender, Nondistended and Normal Bowel Sounds; Negative Organomegaly
Rectal: Deferred by Provider
Musculoskeletal: No Clubbing, No Cyanosis and No Edema
Skin: Negative Rash
Neuro: Awake
Psych: Calm and Intact Judgement/Insight
Data Reviewed
-
Labs: Labs Reviewed by me
[2023-07-08] MEDS: ELIQUIS 5 MG PO ×2 (08:05→21:06)
[2023-07-08] MEDS: ZYLOPRIM 300 MG PO (08:05)
[2023-07-08] MEDS: CARAFATE SUSPENSION 1 GM PO ×4 (08:05→21:06)
[2023-07-08 08:26] LABS: Glucose - Point of Care 95 mg/dl (70-99)
[2023-07-08 09:12] LABS: Glycohemoglobin (HgbA1c) 5.5 % (4.0-5.6)
--- NOTE | 2023-07-08 09:49 | PTOTSP ---
Patient is independent in ADLs/IADLs and functional mobility/transfers with no device. No skilled OT services warranted. Will sign off. RN made aware.
--- NOTE | 2023-07-08 10:19 | PHANOTE ---
Spoke with physician representative from [facility] located in [place], [place] regarding patients TPN order.

Components are as listed below:
Volume: 1,500 ml
Cycle TPN: 12hr
Rate: 68 ml hr 1st and 12th hour and 136.3 ml hrs 2 -11
Macronutrients:
Amino acids: Plenamine 100 g
Dextrose: 275 g
SMOFlipid: 40 g
Micronutrients:
NaCl: 100 mEq
Na Phos: 35 mmol
KCl: 70 mEq
Mag sulfate: 18 mEq
Calcium Gluconate: 10 mEq
Multivitamin: 10ml
Trace Elements: 1ml
[2023-07-08 10:26] LABS: Glucose - Point of Care 107 mg/dl (70-99)
[2023-07-08] MEDS: HYDROPHOR 1 APPLIC TOPICAL (10:45)
[2023-07-08] MEDS: QUESTRAN LIGHT/PREVALITE 4 GRAMS PO ×2 (10:45→21:06)
[2023-07-08] MEDS: CORTROSYN 0.25 MG IV (10:51)
[2023-07-08] MEDS: NSS (PRESERVATIVE FREE) 1 ML IV (10:52)
[2023-07-08 11:11] LABS: ACTH Stim Cortisol 0 Min 10.8 ug/dl
[2023-07-08 11:18] LABS: Glucose - Point of Care 95 mg/dl (70-99)
[2023-07-08 11:18] LABS: Glucose - Point of Care 137 mg/dl (70-99)
[2023-07-08 13:15] LABS: ACTH Stim Cortisol 60 Min 27.8 ug/dl
[2023-07-08] MEDS: D5/0.9% SODIUM CHLORIDE 1000 IV (14:07)
[2023-07-08 15:18] VITALS: BMI 22.3
[2023-07-08 17:03] LABS: Glucose - Point of Care 121 mg/dl (70-99)
[2023-07-08] MEDS: PROTONIX IV 40 MG IV (17:03)
[2023-07-08] MEDS: NSS (PRESERVATIVE FREE) 10 ML IV (17:04)
[2023-07-08 17:52] VITALS: BP 121/66; BMI 22.7
[2023-07-08 18:00] LABS: Glucose - Point of Care 164 mg/dl (70-99)
--- NOTE | 2023-07-08 18:21 | PTCARENOTE ---
pt admitted from ED AOx3 denies pain. blood sugar 168. LCTA B/L on RA +BS x4 abd soft NT last BM this AM. pt has dressing on LLQ from former peg tube. dressing CDI. No edema, weak PP B/L. CB in reach
[2023-07-08] MEDS: Parenteral Nutrition, Central 1500 IV (20:59)
[2023-07-08 23:45] VITALS: BP 122/69
[2023-07-09] LABS: Glucose - Point of Care 189 mg/dl (70-99)
[2023-07-09 05:46] LABS: Glucose - Point of Care 112 mg/dl (70-99)
[2023-07-09] MEDS: SYNTHROID 50 MCG PO (05:50)
[2023-07-09 06:00] VITALS: BMI 22.3
[2023-07-09 06:12] LABS: % Basophils 0.4 % (0-2); % Eosinophils 1.7 % (0-6); % Immature Granulocytes 0.2 % (0-0.5); % Lymphocytes 20.2 % (20.5-51.1); % Monocytes 16.3 % (1.7-9.3); % Neutrophils 61.2 % (42.2-75.2); Absolute Eosinophils 0.1 10^3/uL (0-0.7); Absolute Monocytes 0.8 10^3/uL (0.1-0.6); Absolute Neutrophils 2.9 10^3/uL (1.4-6.5); Hematocrit 31.6 % (39.0-52.0); Hemoglobin 10.2 g/dL (13.0-18.0); Mean Corp Hgb Conc. 32.3 g/dL (33.0-37.0); Mean Corpuscular Hgb 30.7 pg (27.0-31.0); Mean Corpuscular Volume 95.2 fL (80.0-94.0); Mean Platelet Volume 11.7 fL (7.4-10.4); Nucleated Red Blood Cells % 0 % (-); Platelet Count 197 10^3/uL (130-400); Red Blood Cell Count 3.32 10^6/uL (4.70-6.10); Red Cell Dist. Width 17.7 % (11.5-14.5); White Blood Cell Count 4.7 10^3/uL (4.8-10.8)
[2023-07-09 06:36] LABS: ALT (SGPT) 24 U/L (0-50); AST (SGOT) 27 U/L (17-59); Albumin 2.8 g/dl (3.5-5.0); Alkaline Phosphatase 92 U/L (38-126); Blood Urea Nitrogen 18 mg/dl (9-20); Calcium 8.4 mg/dl (8.4-10.2); Carbon Dioxide 24 mmol/L (22-30); Chloride 109 mmol/L (98-107); Estimated Creatinine Clearance 96 ml/min; Glucose 102 mg/dl (70-99); Magnesium 1.9 mg/dl (1.6-2.3); Phosphorus 4.2 mg/dl (2.5-4.5); Potassium 4.1 mmol/L (3.5-5.1); Sodium 137 mmol/L (135-145); Total Bilirubin 0.2 mg/dl (0.2-1.3); Total Protein 5.8 g/dl (6.3-8.2); Triglycerides 76 mg/dl (10-149); eGFR > 60.00
[2023-07-09 07:31] VITALS: BP 113/64
[2023-07-09] MEDS: PROTONIX IV 40 MG IV (08:17)
[2023-07-09] MEDS: NSS (PRESERVATIVE FREE) 10 ML IV (08:17)
[2023-07-09] MEDS: QUESTRAN LIGHT/PREVALITE 4 GRAMS PO (08:17)
[2023-07-09] MEDS: CARAFATE SUSPENSION 1 GM PO ×2 (08:18→12:39)
[2023-07-09] MEDS: ZYLOPRIM 300 MG PO (08:18)
[2023-07-09] MEDS: ELIQUIS 5 MG PO (08:18)
[2023-07-09 08:44] LABS: Glucose - Point of Care 178 mg/dl (70-99)
[2023-07-09 08:48] VITALS: BP 110/66; BP 117/65; BP 94/61; PULSE 101; PULSE 103; PULSE 108
[2023-07-09] MEDS: HYDROPHOR 1 APPLIC TOPICAL (09:04)
--- NOTE | 2023-07-09 09:39 | WOUNDNOTE ---
[facility] RN note: Patient admitted with hypoglycemia
See H&P for complete history.
PMH: istal esophageal cancer with stent, current TPN, intra-abdominal abscess near spleen status post drainage March 2023, vasovagal episode secondary to dehydration, SIADH, HTN, GERD, chronic GI blood loss from esophageal bleeding, iron
deficiency anemia, DANICA, portal vein thrombosis, HLD, hypothyroidism, CAD status post PCI, gout; from home p/w lightheadedness and nausea.
Wound Location and type/assessment: Patient admitted with: Sacral stage 2 and draining old J-tube site. Patient had J-tube removed in December and site has been draining small amount of bilious drainage since that time. Periwound slightly red, no
odor detected. Patient has been using Aquaphor around site to protect skin. Patient also has small stage 2 of buttocks/sacrum surrounded by blanchable red skin. Patient aware of wound and has a occupational therapist home based who has instructed him on use of Aquaphor,
position changes, and use of air cushion. Heels intact. Patient changes positions easily and ambulates.
Appetite: Patient now on TPN and starting to eat again. He states he recently went 2 weeks without eating before TPN started.
Pressure redistribution devices in place: [employer] Accumax
Plan: Local wound care provided to J-tube opening and sacrum as ordered. Instructed patient on importance of off-loading and nutrition for pressure injury prevention and wound healing. Patient has follow up appointment with surgeon to address
draining J-tube site. Will confirm orders with hospitalist and update nurse. Updated care plan and will follow as needed.
Note to case management of equipment requested for discharge:
Recommend follow up at wound care center upon discharge.
--- NOTE | 2023-07-09 11:43 | WOUNDNOTE ---
J-tube opening site, left upper quadrant
--- NOTE | 2023-07-09 11:57 | W.PN.HOSP.TC ---
Addendum entered and electronically signed by Laverne Elena MD 07/09/23 14:49:
total DC time 35 min
Original Note:
Today's Communication/Plan
-
DC home after lunch and AccuCheck teaching by RN
Assessment / Plan
Assessment / Plan
HPI: 77-year-old male with PMH distal esophageal cancer with stent, current TPN, intra-abdominal abscess near spleen status post drainage March 2023, vasovagal episode secondary to dehydration, SIADH, HTN, GERD, chronic GI blood loss from
esophageal bleeding, iron deficiency anemia, DANICA, portal vein thrombosis, HLD, hypothyroidism, CAD status post PCI, gout; from home p/w lightheadedness and nausea.
He was noted to be hypoglycemic with blood sugar of 33 was given D50 IV in ER with mild improvement. He reports he has had on and off hypoglycemia since starting TPN 3 weeks ago. He also drinks Ensure clear apple 3 times daily and is able to
tolerate other foods.
A/P:
# Acute recurrent hypoglycemia, this appear to have resolved
Admitted 2 weeks ago [facility] also with hypoglycemia at that time
s/p D50 push
off D5W NSS and BG remain stable
Cont Accu-Chek AC HS
Continue TPN, regular diet with Ensure alive 3 times daily
BG remain stable, no need for Endocrine CS (was placed by overnight team), consult cancelled
Random cortisol low at 4.5, but stim test responded appropriately
TSH WNL at 3.01
Pt can cont to check BG with home BG monitor at home
# Distal esophageal cancer currently on TPN
# History of stent placement and removal
J-tube removal 2 weeks ago June 2023 [facility]
Follows with oncology [facility] Dr. Retana [phone]
Patient currently on TPN, and Ensure clear apple 3 times daily
Continue Cholestyramine mixed with applesauce
# Hx intra-abdominal abscess near spleen March 2023, s/p abscess drainage at [facility]
# J-tube removal with residual opening to abdomen
# History of vasovagal episode secondary to dehydration
# HTN
Continue metoprolol tartrate 25 mg twice daily
BP stable
# GERD
# Hx chronic GI blood loss from esophageal bleeding
Hgb 11.1 stable
Follows at [facility] [address]
Continue PPI, sucralfate 10 mL p.o. 4 times daily
# Iron deficiency anemia
# DANICA
No current CPAP
# Portal vein thrombosis�improved on CT 12/10/2022
Continue BATTERY CONTAINER INSPECTOR Eliquis
# HLD
Continue Crestor 20 mg daily
# Hypothyroidism
Continue levothyroxine 50 mcg daily
# CAD status post PCI
Continue metoprolol
# Gout
Continue allopurinol 3 mg daily
# AKIAK right ear
DVT prophylaxis: Continue BATTERY CONTAINER INSPECTOR Eliquis
Full code
DW RN
updated on the phone
Anticipated Discharge: Today
Subjective/Interval History
-
Date of Service: July 09, 2023
Objective Data
-
Labs:
Laboratory Results
07/09/23
05:52
WBC 4.7 L
Hgb 10.2 L
Hct 31.6 L
Plt Count 197
Sodium 137
Potassium 4.1
Chloride 109 H
Carbon Dioxide 24
BUN 18
Creatinine 0.5 L
Glucose 102 H
Calcium 8.4
Total Bilirubin 0.2
AST 27
ALT 24
Alkaline Phosphatase 92
Vital Signs:
Vital Signs
Temp Pulse Resp BP Pulse Ox
36.7 C 79 16 113/64 99
07/09/23 07:31 07/09/23 07:31 07/09/23 07:31 07/09/23 07:31 04/18/24 07:31
I&O
07/08/23 07/09/23 07/10/23
06:59 06:59 06:59
Intake Total 1200 / 1200 240 / 240
Output Total 1050 / 1050 920 / 920
Balance 150 / 150 -680 / -680
Review of Systems
-
All other systems: Reviewed and negative
Physical Exam
-
General: Well Developed, No Apparent Distress, Comfortable and Conversant
HEENT: Normocephalic, Atraumatic, Moist Mucous Membranes and Hearing Impaired
Respiratory: Clear to Auscultation and Non Labored Respirations; Negative Accessory Resp Muscle Use
Cardiac: Regular Rhythm and S1/S2
GI: Soft, Nontender, Nondistended and Other (J tube opening); Negative Organomegaly
Rectal: Deferred by Provider
Musculoskeletal: No Clubbing, No Cyanosis and No Edema
Skin: Negative Rash
Neuro: Awake
Psych: Calm and Intact Judgement/Insight
Data Reviewed
-
Labs: Labs Reviewed by me
[2023-07-09 12:05] LABS: Glucose - Point of Care 72 mg/dl (70-99)
--- NOTE | 2023-07-09 13:55 | CM ---
Alert awake oriented patient who lives with his Keren who lives in a 2 story home with 3 step to enter and 10 steps to bed and bathroom. He is independent in driving and in all activities of daily living.He was offered VN he declined need.He
said family would drive him home.
Had VN hx / No SNF history
Pharmacy [facility]
PCP DR Maier
PLAN Home Declined VN
[2023-07-09 14:27] LABS: Glucose - Point of Care 71 mg/dl (70-99)
--- NOTE | 2023-07-09 14:37 | W.DCSUMMARY ---
Discharge Summary
Discharge Data
Date of Admission: 07/07/23
Date of Discharge: 07/09/23
-
Pending Results: No
Hospital Course
Principal Diagnosis:
Recurrent hypoglycemia, resolved
Chronic Diagnoses:�
Distal esophageal cancer currently on TPN and regular diet with Ensure
History of stent placement and removal (J-tube removal in June 2023 at [facility]
History of intra-abdominal abscess near spleen March 2023, s/p abscess drainage at [facility]
History of vasovagal episode secondary to dehydration
Essential hypertension
Gastroesophageal reflux disease
History of chronic GI blood loss from esophageal bleeding
Iron deficiency anemia
Obstructive sleep apnea not on CPAP
Portal vein thrombosis
Hyperlipidemia
Hypothyroidism on Levothyroxine 50 mcg daily
Coronary artery disease status post cardiac stent
Gout, on allopurinol
Hard of hearing
Consultations:�
None
Procedures:�
None
Clinical course:�
This is a 77-year-old male with past medical history as stated above, who presented with lightheadedness and nausea due to hypoglycemic (blood sugar in the 33).
Problem 1:
Recurrent hypoglycemia, resolved after D50 push and D5W NSS IVF.
He has been informed to continue his prior to admission TPN with regular diet and Ensure 3 times daily.
His random cortisol level was low at 4.5, but stim test responded appropriately.
His TSH was WNL at 3.01.
He can continue to check BG with home BG monitor at home. Accu-Chek teaching was provided prior to discharge.
He has also been informed to drink apple juice or eat candies if his blood glucose is low on glucose monitoring.
As for the rest of his medical problems, they were stable during his hospital stay.
Discharge Plan
-
Patient Disposition: Home (Routine Discharge)
Discharge Diagnosis/Procedures: Recurrent hypoglycemia
Condition: Fair
Diet: As tolerated and Other diet
Additional Diets: continue daily TPN AND ensure three times a day (increase if needed) with regular diet
Activity: As tolerated
Driving Restrictions: As prior to admission
Wound Care: Wound Care Instructions J-tube opening- Clean with normal saline or soap and water. Apply Aquaphor to reddened area around opening, cover with alginate and silicone border foam. Change daily and PRN drainage.
Sacrum- Clean with normal saline and soap or soap and water. Apply Aquaphor BID and continue off-loading with frequent position changes and use of air cushion when in bed and in chair
Increase protein in diet
Referrals:
Geovanni Gruber MD [Family Provider] - in less than 1 week
Prescriptions:
New
(DME) blood-glucose meter [Accu-Chek Guide Glucose Meter] Misc
Qty: 1 0RF
Rx Instructions:
As Directed
(DME) Accu-Chek Guide test strips Strip
Qty: 200 0RF
Rx Instructions:
As Directed
(DME) lancets [Accu-Chek Softclix Lancets] Misc
Qty: 200 0RF
Rx Instructions:
As Directed
Continued
levothyroxine [Synthroid] 50 MCG tablet
50 mcg PO DAILY
allopurinol 300 mg Tablet
300 mg PO DAILY
polyethylene glycol 3350 [Miralax] 17 gram Powder In Packet
17 g PO DAILYPRN PRN (Reason: constipation)
sucralfate 100 mg/mL Suspension
10 ml PO QID
metoprolol tartrate 25 mg Tablet
25 mg PO BIDPRN PRN (Reason: BLOOD PRESSURE)
omeprazole 40 mg capsule,delayed release(DR/EC)
40 mg PO DAILY
cholestyramine (with sugar) 4 gram powder in packet
1 ea PO BID
Eliquis 5 mg Tablet
5 mg PO BID
Discharge Orders:
Discharge Patient (As Directed); Ordered 07/09/23
Ordered By: Laverne Elena
Discharge Date and Time
Print Language: ERITREAN
[2023-07-09 14:40] VITALS: BP 131/76
--- NOTE | 2023-07-09 14:52 | PTCARENOTE ---
Pt discharged to home. Reviewed accucheck use and hypoglycemia prior to discharge. Verbalized understanding of all instructions and demonstrated use of accucheck. Pt verbalized normal glucose range, s/s hypoglycemia, how to treat hypoglycemia, how
often to to use accucheck.
== END 2023-07-09 14:50 | disposition home or self-care (01) | DRG 641 ==
LOC: 3 WEST ACU 20:04
PROVIDERS: Clinical Nurse Specialist Family Health; ADMITTING PHYSICIAN Internal Medicine; ATTENDING PHYSICIAN Internal Medicine; EMERGENCY PHYSICIAN Emergency Medicine; FAMILY PHYSICIAN Internal Medicine Geriatric Medicine
DX: E16.2 Hypoglycemia, unspecified (principal); C15.5 Malignant neoplasm of lower third of esophagus; Z87.891 Personal history of nicotine dependence; I11.9 Hypertensive heart disease without heart failure; K21.9 Gastro-esophageal reflux disease without esophagitis; D50.9 Iron deficiency anemia, unspecified; G47.33 Obstructive sleep apnea (adult) (pediatric); E78.00 Pure hypercholesterolemia, unspecified; E03.9 Hypothyroidism, unspecified; M10.9 Gout, unspecified; I25.10 Atherosclerotic heart disease of native coronary artery without angina pectoris; Z95.5 Presence of coronary angioplasty implant and graft
CPT/HCPCS: 71045; 80048; 80053; 82533; 82947; 82962; 83036; 83735; 84100; 84443; 84478; 84484; 85025; 93005; 96374; 99285

== ENCOUNTER → 2023-07-10 15:58 | Outpatient (REF) | payer MEDICARE, BC, SELFPAY ==
[2023-07-10 16:56] LABS: % Basophils 0.5 % (0-2); % Eosinophils 1.1 % (0-6); % Immature Granulocytes 0.2 % (0-0.5); % Lymphocytes 17.7 % (20.5-51.1); % Monocytes 13.3 % (1.7-9.3); % Neutrophils 67.2 % (42.2-75.2); Absolute Eosinophils 0.1 10^3/uL (0-0.7); Absolute Monocytes 0.8 10^3/uL (0.1-0.6); Absolute Neutrophils 3.8 10^3/uL (1.4-6.5); Hematocrit 33.4 % (39.0-52.0); Mean Corp Hgb Conc. 32.9 g/dL (33.0-37.0); Mean Corpuscular Hgb 30.8 pg (27.0-31.0); Mean Corpuscular Volume 93.6 fL (80.0-94.0); Mean Platelet Volume 11.5 fL (7.4-10.4); Nucleated Red Blood Cells % 0 % (-); Platelet Count 222 10^3/uL (130-400); Red Blood Cell Count 3.57 10^6/uL (4.70-6.10); Red Cell Dist. Width 17.9 % (11.5-14.5); White Blood Cell Count 5.7 10^3/uL (4.8-10.8)
[2023-07-10 17:09] LABS: ALT (SGPT) 34 U/L (0-50); AST (SGOT) 36 U/L (17-59); Albumin 3.3 g/dl (3.5-5.0); Alkaline Phosphatase 108 U/L (38-126); Blood Urea Nitrogen 22 mg/dl (9-20); Calcium 8.8 mg/dl (8.4-10.2); Carbon Dioxide 25 mmol/L (22-30); Chloride 106 mmol/L (98-107); Glucose 78 mg/dl (70-99); Potassium 4.6 mmol/L (3.5-5.1); Sodium 134 mmol/L (135-145); Total Bilirubin 0.2 mg/dl (0.2-1.3); Total Protein 6.6 g/dl (6.3-8.2); eGFR > 60.00
[2023-07-12 12:55] LABS: Insulin, Random 4 uIU/mL
[2023-07-13 02:18] LABS: IGF-1 Z Score Calculation 0.4; Insulin-like Growth Factor I 118 ng/mL (22-212)
== END ==
LOC: REG 15:58
PROVIDERS: ATTENDING PHYSICIAN Nurse Practitioner Family; FAMILY PHYSICIAN Internal Medicine Geriatric Medicine; REFERRING PHYSICIAN Surgery Surgical Oncology
DX: E16.2 Hypoglycemia, unspecified (principal); C15.9 Malignant neoplasm of esophagus, unspecified
CPT/HCPCS: 36415; 80053; 83525; 84305; 85025

== ENCOUNTER → 2023-08-04 11:33 | Outpatient (REF) | payer BC, SELFPAY ==
[2023-08-04 13:59] LABS: % Basophils 0.4 % (0-2); % Eosinophils 2.5 % (0-6); % Immature Granulocytes 0.2 % (0-0.5); % Neutrophils 54.9 % (42.2-75.2); Absolute Eosinophils 0.1 10^3/uL (0-0.7); Absolute Lymphocytes 1.3 10^3/uL (1.2-3.4); Absolute Monocytes 0.9 10^3/uL (0.1-0.6); Absolute Neutrophils 2.9 10^3/uL (1.4-6.5); Hematocrit 35.1 % (39.0-52.0); Mean Corp Hgb Conc. 31.3 g/dL (33.0-37.0); Mean Corpuscular Hgb 30.1 pg (27.0-31.0); Mean Corpuscular Volume 96.2 fL (80.0-94.0); Mean Platelet Volume 11.7 fL (7.4-10.4); Nucleated Red Blood Cells % 0 % (-); Platelet Count 251 10^3/uL (130-400); Red Blood Cell Count 3.65 10^6/uL (4.70-6.10); White Blood Cell Count 5.2 10^3/uL (4.8-10.8)
[2023-08-04 14:36] LABS: ALT (SGPT) 28 U/L (0-50); AST (SGOT) 34 U/L (17-59); Albumin 3.7 g/dl (3.5-5.0); Alkaline Phosphatase 120 U/L (38-126); Blood Urea Nitrogen 21 mg/dl (9-20); Carbon Dioxide 26 mmol/L (22-30); Chloride 106 mmol/L (98-107); Glucose 40 mg/dl (70-99); Potassium 4.5 mmol/L (3.5-5.1); Sodium 140 mmol/L (135-145); Total Bilirubin 0.2 mg/dl (0.2-1.3); Total Protein 7.3 g/dl (6.3-8.2); eGFR > 60.00
[2023-08-04 15:01] LABS: TSH 0.63 uIU/ml (0.47-4.68)
== END ==
LOC: REG 11:33
PROVIDERS: ATTENDING PHYSICIAN Internal Medicine Hematology & Oncology; FAMILY PHYSICIAN Internal Medicine Geriatric Medicine; OTHER PHYSICIAN Internal Medicine Endocrinology, Diabetes & Metabolism
DX: C16.0 Malignant neoplasm of cardia (principal); D50.0 Iron deficiency anemia secondary to blood loss (chronic)
CPT/HCPCS: 36415; 80053; 84443; 85025

== ENCOUNTER → 2023-08-25 13:08 | Outpatient (REF) | payer BC, SELFPAY ==
[2023-08-25 14:07] LABS: % Basophils 0.4 % (0-2); % Eosinophils 2.8 % (0-6); % Immature Granulocytes 0.2 % (0-0.5); % Monocytes 13.5 % (1.7-9.3); % Neutrophils 63.1 % (42.2-75.2); Absolute Eosinophils 0.2 10^3/uL (0-0.7); Absolute Lymphocytes 1.1 10^3/uL (1.2-3.4); Absolute Monocytes 0.7 10^3/uL (0.1-0.6); Absolute Neutrophils 3.4 10^3/uL (1.4-6.5); Hematocrit 29.9 % (39.0-52.0); Hemoglobin 9.9 g/dL (13.0-18.0); Mean Corp Hgb Conc. 33.1 g/dL (33.0-37.0); Mean Corpuscular Hgb 30.6 pg (27.0-31.0); Mean Corpuscular Volume 92.3 fL (80.0-94.0); Mean Platelet Volume 11.9 fL (7.4-10.4); Nucleated Red Blood Cells % 0 % (-); Platelet Count 238 10^3/uL (130-400); Red Blood Cell Count 3.24 10^6/uL (4.70-6.10); Red Cell Dist. Width 14.9 % (11.5-14.5); White Blood Cell Count 5.4 10^3/uL (4.8-10.8)
[2023-08-25 14:35] LABS: ALT (SGPT) 29 U/L (0-50); AST (SGOT) 29 U/L (17-59); Albumin 3.3 g/dl (3.5-5.0); Alkaline Phosphatase 110 U/L (38-126); Blood Urea Nitrogen 27 mg/dl (9-20); Calcium 8.8 mg/dl (8.4-10.2); Carbon Dioxide 23 mmol/L (22-30); Chloride 106 mmol/L (98-107); Glucose 80 mg/dl (70-99); Potassium 4.3 mmol/L (3.5-5.1); Sodium 137 mmol/L (135-145); Total Bilirubin 0.3 mg/dl (0.2-1.3); Total Protein 6.6 g/dl (6.3-8.2); eGFR > 60.00
[2023-08-25 15:11] LABS: TSH 1.82 uIU/ml (0.47-4.68)
== END ==
LOC: REG 13:08
PROVIDERS: ATTENDING PHYSICIAN Internal Medicine Hematology & Oncology; FAMILY PHYSICIAN Internal Medicine Geriatric Medicine
DX: C16.0 Malignant neoplasm of cardia (principal); D50.0 Iron deficiency anemia secondary to blood loss (chronic)
CPT/HCPCS: 36415; 80053; 84443; 85025

== ENCOUNTER → 2023-09-15 10:33 | Outpatient (REF) | payer BC, SELFPAY ==
[2023-09-15 12:28] LABS: % Basophils 0.5 % (0-2); % Immature Granulocytes 0.3 % (0-0.5); % Lymphocytes 26.3 % (20.5-51.1); % Monocytes 12.8 % (1.7-9.3); % Neutrophils 55.1 % (42.2-75.2); Absolute Eosinophils 0.2 10^3/uL (0-0.7); Absolute Lymphocytes 1.1 10^3/uL (1.2-3.4); Absolute Monocytes 0.5 10^3/uL (0.1-0.6); Absolute Neutrophils 2.2 10^3/uL (1.4-6.5); Hematocrit 31.7 % (39.0-52.0); Hemoglobin 10.3 g/dL (13.0-18.0); Mean Corp Hgb Conc. 32.5 g/dL (33.0-37.0); Mean Corpuscular Hgb 30.2 pg (27.0-31.0); Mean Platelet Volume 12.2 fL (7.4-10.4); Nucleated Red Blood Cells % 0 % (-); Platelet Count 217 10^3/uL (130-400); Red Blood Cell Count 3.41 10^6/uL (4.70-6.10); Red Cell Dist. Width 14.5 % (11.5-14.5)
[2023-09-15 12:50] LABS: ALT (SGPT) 20 U/L (0-50); AST (SGOT) 24 U/L (17-59); Albumin 3.9 g/dl (3.5-5.0); Alkaline Phosphatase 112 U/L (38-126); Blood Urea Nitrogen 28 mg/dl (9-20); Carbon Dioxide 26 mmol/L (22-30); Chloride 107 mmol/L (98-107); Glucose 64 mg/dl (70-99); Potassium 4.4 mmol/L (3.5-5.1); Sodium 140 mmol/L (135-145); Total Bilirubin 0.4 mg/dl (0.2-1.3); eGFR > 60.00
[2023-09-15 13:06] LABS: Free T4 1.11 ng/dl (0.78-2.19)
[2023-09-15 13:20] LABS: TSH 2.38 uIU/ml (0.47-4.68)
[2023-09-16 17:05] LABS: Total T3 (Sendout) 76 ng/dL (80-200)
== END ==
LOC: REG 10:33
PROVIDERS: ATTENDING PHYSICIAN Internal Medicine Hematology & Oncology; FAMILY PHYSICIAN Internal Medicine Geriatric Medicine
DX: C16.0 Malignant neoplasm of cardia (principal); D50.0 Iron deficiency anemia secondary to blood loss (chronic); C78.7 Secondary malignant neoplasm of liver and intrahepatic bile duct
CPT/HCPCS: 36415; 80053; 84439; 84443; 84480; 85025

== ENCOUNTER → 2023-10-06 08:40 | Outpatient (REF) | payer BC, SELFPAY ==
[2023-10-06 09:12] LABS: % Basophils 0.5 % (0-2); % Eosinophils 2.7 % (0-6); % Immature Granulocytes 0.3 % (0-0.5); % Lymphocytes 22.2 % (20.5-51.1); % Monocytes 11.8 % (1.7-9.3); % Neutrophils 62.5 % (42.2-75.2); Absolute Eosinophils 0.1 10^3/uL (0-0.7); Absolute Lymphocytes 0.8 10^3/uL (1.2-3.4); Absolute Monocytes 0.4 10^3/uL (0.1-0.6); Absolute Neutrophils 2.3 10^3/uL (1.4-6.5); Hematocrit 33.6 % (39.0-52.0); Hemoglobin 11.1 g/dL (13.0-18.0); Mean Corpuscular Hgb 30.7 pg (27.0-31.0); Mean Corpuscular Volume 92.8 fL (80.0-94.0); Mean Platelet Volume 11.4 fL (7.4-10.4); Nucleated Red Blood Cells % 0 % (-); Platelet Count 263 10^3/uL (130-400); Red Blood Cell Count 3.62 10^6/uL (4.70-6.10); Red Cell Dist. Width 14.7 % (11.5-14.5); White Blood Cell Count 3.7 10^3/uL (4.8-10.8)
[2023-10-06 09:40] LABS: ALT (SGPT) 22 U/L (0-50); AST (SGOT) 27 U/L (17-59); Albumin 4.1 g/dl (3.5-5.0); Alkaline Phosphatase 127 U/L (38-126); Blood Urea Nitrogen 25 mg/dl (9-20); Calcium 9.4 mg/dl (8.4-10.2); Carbon Dioxide 22 mmol/L (22-30); Chloride 105 mmol/L (98-107); Glucose 92 mg/dl (70-99); Sodium 139 mmol/L (135-145); Total Bilirubin 0.4 mg/dl (0.2-1.3); Total Protein 7.1 g/dl (6.3-8.2); eGFR > 60.00
[2023-10-06 10:26] LABS: TSH 2.34 uIU/ml (0.47-4.68)
== END ==
LOC: REG 08:40
PROVIDERS: ATTENDING PHYSICIAN Internal Medicine Hematology & Oncology; FAMILY PHYSICIAN Internal Medicine Geriatric Medicine
DX: C16.0 Malignant neoplasm of cardia (principal); D50.0 Iron deficiency anemia secondary to blood loss (chronic)
CPT/HCPCS: 36415; 80053; 84443; 85025

== ENCOUNTER → 2023-10-27 10:11 | Outpatient (REF) | payer BC, SELFPAY ==
[2023-10-27 10:53] LABS: % Basophils 0.5 % (0-2); % Eosinophils 4.2 % (0-6); % Immature Granulocytes 0.2 % (0-0.5); % Lymphocytes 22.1 % (20.5-51.1); % Monocytes 14.3 % (1.7-9.3); % Neutrophils 58.7 % (42.2-75.2); Absolute Eosinophils 0.2 10^3/uL (0-0.7); Absolute Lymphocytes 0.9 10^3/uL (1.2-3.4); Absolute Monocytes 0.6 10^3/uL (0.1-0.6); Absolute Neutrophils 2.4 10^3/uL (1.4-6.5); Hemoglobin 10.6 g/dL (13.0-18.0); Mean Corp Hgb Conc. 33.1 g/dL (33.0-37.0); Mean Corpuscular Hgb 30.3 pg (27.0-31.0); Mean Corpuscular Volume 91.4 fL (80.0-94.0); Mean Platelet Volume 11.5 fL (7.4-10.4); Nucleated Red Blood Cells % 0 % (-); Platelet Count 217 10^3/uL (130-400); Red Cell Dist. Width 15.6 % (11.5-14.5); White Blood Cell Count 4.1 10^3/uL (4.8-10.8)
[2023-10-27 14:10] LABS: ALT (SGPT) 17 U/L (0-50); AST (SGOT) 23 U/L (17-59); Albumin 3.8 g/dl (3.5-5.0); Alkaline Phosphatase 125 U/L (38-126); Blood Urea Nitrogen 24 mg/dl (9-20); Calcium 8.5 mg/dl (8.4-10.2); Carbon Dioxide 24 mmol/L (22-30); Chloride 108 mmol/L (98-107); Glucose 39 mg/dl (70-99); Potassium 4.3 mmol/L (3.5-5.1); Sodium 139 mmol/L (135-145); Total Bilirubin 0.4 mg/dl (0.2-1.3); Total Protein 6.7 g/dl (6.3-8.2); eGFR > 60.00
[2023-10-27 16:14] LABS: TSH 3.72 uIU/ml (0.47-4.68)
== END ==
LOC: REG 10:11
PROVIDERS: ATTENDING PHYSICIAN Internal Medicine Hematology & Oncology; FAMILY PHYSICIAN Internal Medicine Geriatric Medicine
DX: C16.0 Malignant neoplasm of cardia (principal); D50.0 Iron deficiency anemia secondary to blood loss (chronic)
CPT/HCPCS: 36415; 80053; 84443; 85025

== ENCOUNTER → 2023-11-17 10:42 | Outpatient (REF) | payer BC, SELFPAY ==
[2023-11-17 13:33] LABS: % Basophils 0.4 % (0-2); % Eosinophils 3.8 % (0-6); % Immature Granulocytes 0.2 % (0-0.5); % Lymphocytes 17.6 % (20.5-51.1); % Monocytes 13.8 % (1.7-9.3); % Neutrophils 64.2 % (42.2-75.2); Absolute Eosinophils 0.2 10^3/uL (0-0.7); Absolute Lymphocytes 0.8 10^3/uL (1.2-3.4); Absolute Monocytes 0.7 10^3/uL (0.1-0.6); Absolute Neutrophils 3.1 10^3/uL (1.4-6.5); Hematocrit 30.7 % (39.0-52.0); Hemoglobin 9.8 g/dL (13.0-18.0); Mean Corp Hgb Conc. 31.9 g/dL (33.0-37.0); Mean Corpuscular Volume 90.8 fL (80.0-94.0); Mean Platelet Volume 11.7 fL (7.4-10.4); Nucleated Red Blood Cells % 0 % (-); Platelet Count 250 10^3/uL (130-400); Red Blood Cell Count 3.38 10^6/uL (4.70-6.10); Red Cell Dist. Width 16.3 % (11.5-14.5); White Blood Cell Count 4.8 10^3/uL (4.8-10.8)
[2023-11-17 14:58] LABS: ALT (SGPT) 18 U/L (0-50); AST (SGOT) 23 U/L (17-59); Albumin 3.7 g/dl (3.5-5.0); Alkaline Phosphatase 114 U/L (38-126); Blood Urea Nitrogen 31 mg/dl (9-20); Calcium 8.6 mg/dl (8.4-10.2); Carbon Dioxide 26 mmol/L (22-30); Chloride 104 mmol/L (98-107); Glucose 93 mg/dl (70-99); Potassium 5.1 mmol/L (3.5-5.1); Sodium 140 mmol/L (135-145); Total Bilirubin 0.3 mg/dl (0.2-1.3); Total Protein 6.6 g/dl (6.3-8.2); eGFR > 60.00
[2023-11-17 15:19] LABS: TSH 3.65 uIU/ml (0.47-4.68)
== END ==
LOC: RAD 10:42
PROVIDERS: ATTENDING PHYSICIAN Internal Medicine Hematology & Oncology; FAMILY PHYSICIAN Internal Medicine Geriatric Medicine
DX: C16.0 Malignant neoplasm of cardia (principal); D50.0 Iron deficiency anemia secondary to blood loss (chronic)
CPT/HCPCS: 36415; 80053; 84443; 85025

== ENCOUNTER → 2023-12-08 12:56 | Outpatient (REF) | payer BC, SELFPAY ==
[2023-12-08 14:39] LABS: % Basophils 0.2 % (0-2); % Immature Granulocytes 0.5 % (0-0.5); % Lymphocytes 22.2 % (20.5-51.1); % Monocytes 13.3 % (1.7-9.3); % Neutrophils 60.8 % (42.2-75.2); Absolute Eosinophils 0.1 10^3/uL (0-0.7); Absolute Monocytes 0.6 10^3/uL (0.1-0.6); Absolute Neutrophils 2.7 10^3/uL (1.4-6.5); Hematocrit 31.5 % (39.0-52.0); Hemoglobin 10.2 g/dL (13.0-18.0); Mean Corp Hgb Conc. 32.4 g/dL (33.0-37.0); Mean Corpuscular Hgb 29.7 pg (27.0-31.0); Mean Corpuscular Volume 91.6 fL (80.0-94.0); Mean Platelet Volume 11.4 fL (7.4-10.4); Nucleated Red Blood Cells % 0 % (-); Platelet Count 247 10^3/uL (130-400); Red Blood Cell Count 3.44 10^6/uL (4.70-6.10); Red Cell Dist. Width 15.8 % (11.5-14.5); White Blood Cell Count 4.4 10^3/uL (4.8-10.8)
[2023-12-08 15:00] LABS: ALT (SGPT) 16 U/L (0-50); AST (SGOT) 22 U/L (17-59); Albumin 3.7 g/dl (3.5-5.0); Alkaline Phosphatase 113 U/L (38-126); Blood Urea Nitrogen 17 mg/dl (9-20); Calcium 8.9 mg/dl (8.4-10.2); Carbon Dioxide 25 mmol/L (22-30); Chloride 103 mmol/L (98-107); Glucose 80 mg/dl (70-99); Sodium 140 mmol/L (135-145); Total Bilirubin 0.5 mg/dl (0.2-1.3); Total Protein 6.6 g/dl (6.3-8.2); eGFR > 60.00
[2023-12-08 15:29] LABS: TSH 3.89 uIU/ml (0.47-4.68)
== END ==
LOC: REG 12:56
PROVIDERS: ATTENDING PHYSICIAN Internal Medicine Hematology & Oncology; FAMILY PHYSICIAN Internal Medicine Geriatric Medicine
DX: C16.0 Malignant neoplasm of cardia (principal); D50.0 Iron deficiency anemia secondary to blood loss (chronic)
CPT/HCPCS: 36415; 80053; 84443; 85025

== ENCOUNTER → 2024-01-18 11:52 | Outpatient (REF) | payer BC, SELFPAY ==
[2024-01-18 13:36] LABS: % Basophils 0.4 % (0-2); % Eosinophils 1.6 % (0-6); % Immature Granulocytes 0.2 % (0-0.5); % Lymphocytes 14.5 % (20.5-51.1); % Monocytes 12.3 % (1.7-9.3); Absolute Eosinophils 0.1 10^3/uL (0-0.7); Absolute Lymphocytes 0.8 10^3/uL (1.2-3.4); Absolute Monocytes 0.7 10^3/uL (0.1-0.6); Hematocrit 34.5 % (39.0-52.0); Mean Corp Hgb Conc. 31.9 g/dL (33.0-37.0); Mean Corpuscular Hgb 29.3 pg (27.0-31.0); Mean Platelet Volume 11.5 fL (7.4-10.4); Nucleated Red Blood Cells % 0 % (-); Platelet Count 286 10^3/uL (130-400); Red Blood Cell Count 3.75 10^6/uL (4.70-6.10); Red Cell Dist. Width 16.3 % (11.5-14.5); White Blood Cell Count 5.6 10^3/uL (4.8-10.8)
[2024-01-18 14:04] LABS: ALT (SGPT) 21 U/L (0-50); AST (SGOT) 23 U/L (17-59); Alkaline Phosphatase 110 U/L (38-126); Blood Urea Nitrogen 15 mg/dl (9-20); Calcium 9.1 mg/dl (8.4-10.2); Carbon Dioxide 29 mmol/L (22-30); Chloride 100 mmol/L (98-107); Glucose 68 mg/dl (70-99); Iron 44 ug/dl (49-181); Potassium 4.4 mmol/L (3.5-5.1); Sodium 142 mmol/L (135-145); Total Bilirubin 0.5 mg/dl (0.2-1.3); Total Protein 7.1 g/dl (6.3-8.2); eGFR > 60.00
[2024-01-18 15:08] LABS: Folate > 20.0 ng/ml (2.76-20); Vitamin B12 319 pg/ml (239-931)
== END ==
LOC: REG 11:52
PROVIDERS: ATTENDING PHYSICIAN Internal Medicine Hematology & Oncology; FAMILY PHYSICIAN Internal Medicine Geriatric Medicine; OTHER PHYSICIAN Surgery Surgical Oncology
DX: C16.0 Malignant neoplasm of cardia (principal); D50.0 Iron deficiency anemia secondary to blood loss (chronic)
CPT/HCPCS: 36415; 80053; 82607; 82746; 83540; 84443; 85025

== ENCOUNTER → 2024-01-30 09:03 | Outpatient (REF) | payer BC, MEDICARE, SELFPAY ==
[2024-01-30 10:33] LABS: Free T4 1.59 ng/dl (0.78-2.19); Vitamin D, 25-OH*** 41.2 ng/mL (30-80)
[2024-01-30 10:45] LABS: CEA 2.63 ng/ml
[2024-01-30 10:46] LABS: TSH 2.38 uIU/ml (0.47-4.68)
[2024-01-30 11:22] LABS: Folate > 20.0 ng/ml (2.76-20); Vitamin B12 326 pg/ml (239-931)
[2024-02-01 15:36] LABS: CA 19-9 <2 U/mL (<=35)
== END ==
LOC: REG 09:03
PROVIDERS: ATTENDING PHYSICIAN Surgery Surgical Oncology; FAMILY PHYSICIAN Nurse Practitioner Family
DX: R53.83 Other fatigue (principal); R41.89 Other symptoms and signs involving cognitive functions and awareness; Z79.899 Other long term (current) drug therapy; C16.0 Malignant neoplasm of cardia
CPT/HCPCS: 36415; 82306; 82378; 82607; 82746; 84439; 84443; 86301

== ENCOUNTER → 2024-02-25 08:22 | Outpatient (REF) | payer BC, MEDICARE, SELFPAY ==
[2024-02-25 09:22] LABS: % Basophils 0.7 % (0-2); % Eosinophils 5.7 % (0-6); % Immature Granulocytes 0.2 % (0-0.5); % Lymphocytes 25.4 % (20.5-51.1); % Monocytes 11.7 % (1.7-9.3); % Neutrophils 56.3 % (42.2-75.2); Absolute Eosinophils 0.2 10^3/uL (0-0.7); Absolute Monocytes 0.5 10^3/uL (0.1-0.6); Absolute Neutrophils 2.3 10^3/uL (1.4-6.5); Hematocrit 37.2 % (39.0-52.0); Hemoglobin 11.7 g/dL (13.0-18.0); Mean Corp Hgb Conc. 31.5 g/dL (33.0-37.0); Mean Corpuscular Hgb 29.2 pg (27.0-31.0); Mean Corpuscular Volume 92.8 fL (80.0-94.0); Nucleated Red Blood Cells % 0 % (-); Platelet Count 251 10^3/uL (130-400); Red Blood Cell Count 4.01 10^6/uL (4.70-6.10)
[2024-02-25 09:57] LABS: ALT (SGPT) 20 U/L (0-50); AST (SGOT) 24 U/L (17-59); Albumin 4.3 g/dl (3.5-5.0); Alkaline Phosphatase 93 U/L (38-126); Blood Urea Nitrogen 15 mg/dl (9-20); Calcium 9.4 mg/dl (8.4-10.2); Carbon Dioxide 30 mmol/L (22-30); Chloride 99 mmol/L (98-107); Iron 132 ug/dl (49-181); Potassium 4.2 mmol/L (3.5-5.1); Sodium 139 mmol/L (135-145); Total Bilirubin 0.4 mg/dl (0.2-1.3); Total Protein 7.2 g/dl (6.3-8.2); eGFR > 60.00
[2024-02-25 10:08] LABS: Percent Saturation 38 % (20-50); Total Iron Binding Capacity 341 ug/dl (261-462)
[2024-02-25 10:20] LABS: TSH 2.69 uIU/ml (0.47-4.68)
[2024-02-25 11:43] LABS: Glucose 100 mg/dl (70-99)
[2024-02-25 12:15] LABS: Ferritin 7.5 ng/ml (17.9-464.0)
[2024-02-25 13:00] LABS: Cortisol, Random 13.8 ug/dl
[2024-02-26 19:00] LABS: Adrenocorticotropic Hormone 56.3 pg/mL (7.2-63.3)
== END ==
LOC: REG 08:22
PROVIDERS: ATTENDING PHYSICIAN Internal Medicine Hematology & Oncology; FAMILY PHYSICIAN Internal Medicine Geriatric Medicine; OTHER PHYSICIAN Surgery Surgical Oncology
DX: C16.0 Malignant neoplasm of cardia (principal); D50.0 Iron deficiency anemia secondary to blood loss (chronic); C78.7 Secondary malignant neoplasm of liver and intrahepatic bile duct
CPT/HCPCS: 36415; 80053; 82024; 82533; 82728; 83540; 83550; 84443; 85025

== ENCOUNTER → 2024-02-29 13:11 | Outpatient (REF) | payer BC, MEDICARE, SELFPAY ==
[2024-02-29 14:16] LABS: % Basophils 0.7 % (0-2); % Eosinophils 3.8 % (0-6); % Immature Granulocytes 0.2 % (0-0.5); % Lymphocytes 21.6 % (20.5-51.1); % Monocytes 13.9 % (1.7-9.3); % Neutrophils 59.8 % (42.2-75.2); Absolute Eosinophils 0.2 10^3/uL (0-0.7); Absolute Monocytes 0.6 10^3/uL (0.1-0.6); Absolute Neutrophils 2.7 10^3/uL (1.4-6.5); Hematocrit 35.7 % (39.0-52.0); Hemoglobin 11.6 g/dL (13.0-18.0); Mean Corp Hgb Conc. 32.5 g/dL (33.0-37.0); Mean Corpuscular Hgb 29.5 pg (27.0-31.0); Mean Corpuscular Volume 90.8 fL (80.0-94.0); Mean Platelet Volume 10.8 fL (7.4-10.4); Nucleated Red Blood Cells % 0 % (-); Platelet Count 235 10^3/uL (130-400); Red Blood Cell Count 3.93 10^6/uL (4.70-6.10); Red Cell Dist. Width 17.2 % (11.5-14.5); White Blood Cell Count 4.5 10^3/uL (4.8-10.8)
[2024-02-29 14:49] LABS: ALT (SGPT) 16 U/L (0-50); AST (SGOT) 18 U/L (17-59); Albumin 3.8 g/dl (3.5-5.0); Alkaline Phosphatase 97 U/L (38-126); Blood Urea Nitrogen 17 mg/dl (9-20); Calcium 8.9 mg/dl (8.4-10.2); Carbon Dioxide 30 mmol/L (22-30); Chloride 103 mmol/L (98-107); Glucose 80 mg/dl (70-99); Potassium 4.1 mmol/L (3.5-5.1); Sodium 138 mmol/L (135-145); Total Bilirubin 0.3 mg/dl (0.2-1.3); Total Protein 6.4 g/dl (6.3-8.2); eGFR > 60.00
== END ==
LOC: REG 13:11
PROVIDERS: ATTENDING PHYSICIAN Internal Medicine Hematology & Oncology; FAMILY PHYSICIAN Internal Medicine Geriatric Medicine; REFERRING PHYSICIAN Surgery Surgical Oncology
DX: C16.0 Malignant neoplasm of cardia (principal); D50.0 Iron deficiency anemia secondary to blood loss (chronic); C78.7 Secondary malignant neoplasm of liver and intrahepatic bile duct
CPT/HCPCS: 36415; 80053; 85025

== ENCOUNTER → 2024-03-10 15:47 | Outpatient (REF) | payer BC, MEDICARE, SELFPAY ==
[2024-03-10 14:44] LABS: % Basophils 0.2 % (0-2); % Immature Granulocytes 0.2 % (0-0.5); % Lymphocytes 15.6 % (20.5-51.1); % Monocytes 10.4 % (1.7-9.3); % Neutrophils 69.6 % (42.2-75.2); Absolute Eosinophils 0.2 10^3/uL (0-0.7); Absolute Lymphocytes 0.8 10^3/uL (1.2-3.4); Absolute Monocytes 0.5 10^3/uL (0.1-0.6); Absolute Neutrophils 3.4 10^3/uL (1.4-6.5); Hematocrit 34.8 % (39.0-52.0); Hemoglobin 11.1 g/dL (13.0-18.0); Mean Corp Hgb Conc. 31.9 g/dL (33.0-37.0); Mean Corpuscular Hgb 29.9 pg (27.0-31.0); Mean Corpuscular Volume 93.8 fL (80.0-94.0); Mean Platelet Volume 10.6 fL (7.4-10.4); Platelet Count 201 10^3/uL (130-400); Red Blood Cell Count 3.71 10^6/uL (4.70-6.10); Red Cell Dist. Width 17.6 % (11.5-14.5); White Blood Cell Count 4.8 10^3/uL (4.8-10.8)
[2024-03-10 15:17] LABS: Phosphorus 1.2 mg/dl (2.5-4.5)
[2024-03-10 15:34] LABS: Vitamin D, 25-OH*** 36.6 ng/mL (30-80)
== END ==
LOC: OIDL 15:47
PROVIDERS: ATTENDING PHYSICIAN Nurse Practitioner Acute Care
DX: C16.0 Malignant neoplasm of cardia (principal)
CPT/HCPCS: 82306; 84100; 85025

== ENCOUNTER → 2024-03-25 10:30 | Outpatient (REF) | payer BC, MEDICARE, SELFPAY ==
[2024-03-25 11:31] LABS: % Basophils 0.5 % (0-2); % Eosinophils 3.5 % (0-6); % Immature Granulocytes 1.4 % (0-0.5); % Lymphocytes 19.1 % (20.5-51.1); % Monocytes 13.8 % (1.7-9.3); % Neutrophils 61.7 % (42.2-75.2); Absolute Eosinophils 0.2 10^3/uL (0-0.7); Absolute Immature Granulocytes 0.1 10^3/uL (0-0.05); Absolute Lymphocytes 0.8 10^3/uL (1.2-3.4); Absolute Monocytes 0.6 10^3/uL (0.1-0.6); Absolute Neutrophils 2.7 10^3/uL (1.4-6.5); Hematocrit 35.2 % (39.0-52.0); Hemoglobin 11.4 g/dL (13.0-18.0); Mean Corp Hgb Conc. 32.4 g/dL (33.0-37.0); Mean Corpuscular Volume 92.6 fL (80.0-94.0); Mean Platelet Volume 11.6 fL (7.4-10.4); Nucleated Red Blood Cells % 0 % (-); Platelet Count 150 10^3/uL (130-400); Red Cell Dist. Width 18.6 % (11.5-14.5); White Blood Cell Count 4.3 10^3/uL (4.8-10.8)
[2024-03-25 16:23] LABS: Phosphorus 1.3 mg/dl (2.5-4.5)
== END ==
LOC: REG 10:30
PROVIDERS: ATTENDING PHYSICIAN Nurse Practitioner Adult Health; FAMILY PHYSICIAN Internal Medicine Geriatric Medicine; REFERRING PHYSICIAN Surgery Surgical Oncology
DX: C16.0 Malignant neoplasm of cardia (principal); D50.0 Iron deficiency anemia secondary to blood loss (chronic); C78.7 Secondary malignant neoplasm of liver and intrahepatic bile duct
CPT/HCPCS: 36415; 84100; 85025

== ENCOUNTER → 2024-03-29 14:43 | Outpatient (REF) | payer BC, MEDICARE, SELFPAY ==
[2024-03-29 16:07] LABS: Urine Albumin Negative (Neg - Trace); Urine Bilirubin Negative (Negative); Urine Character Clear (Clear); Urine Color Yellow; Urine Glucose Negative (Negative); Urine Ketone Negative (Negative); Urine Leukocyte Negative (Negative); Urine Nitrite Negative (Negative); Urine Occult Blood Negative (Negative); Urine Urobilinogen Negative (Neg - 1+)
[2024-03-29 16:10] LABS: % Basophils 0.2 % (0-2); % Eosinophils 3.4 % (0-6); % Lymphocytes 18.3 % (20.5-51.1); % Monocytes 10.8 % (1.7-9.3); % Neutrophils 67.3 % (42.2-75.2); Absolute Eosinophils 0.2 10^3/uL (0-0.7); Absolute Lymphocytes 0.9 10^3/uL (1.2-3.4); Absolute Monocytes 0.5 10^3/uL (0.1-0.6); Absolute Neutrophils 3.1 10^3/uL (1.4-6.5); Hematocrit 36.2 % (39.0-52.0); Mean Corp Hgb Conc. 33.1 g/dL (33.0-37.0); Mean Corpuscular Hgb 30.7 pg (27.0-31.0); Mean Corpuscular Volume 92.6 fL (80.0-94.0); Mean Platelet Volume 12.2 fL (7.4-10.4); Nucleated Red Blood Cells % 0 % (-); Platelet Count 140 10^3/uL (130-400); Red Blood Cell Count 3.91 10^6/uL (4.70-6.10); Red Cell Dist. Width 18.5 % (11.5-14.5); White Blood Cell Count 4.7 10^3/uL (4.8-10.8)
[2024-03-29 16:41] LABS: Protein/creatinine Ratio 0.3; Urine Protein 13 mg/dl
[2024-03-29 17:00] LABS: ALT (SGPT) 25 U/L (0-50); AST (SGOT) 23 U/L (17-59); Albumin 3.4 g/dl (3.5-5.0); Alkaline Phosphatase 116 U/L (38-126); Blood Urea Nitrogen 12 mg/dl (9-20); Calcium 7.8 mg/dl (8.4-10.2); Carbon Dioxide 28 mmol/L (22-30); Chloride 104 mmol/L (98-107); Glucose 74 mg/dl (70-99); Magnesium 2.1 mg/dl (1.6-2.3); Phosphorus 1.3 mg/dl (2.5-4.5); Potassium 4.2 mmol/L (3.5-5.1); Sodium 139 mmol/L (135-145); Total Bilirubin 0.3 mg/dl (0.2-1.3); Total Protein 5.9 g/dl (6.3-8.2); eGFR > 60.00
== END ==
LOC: REG 14:43
PROVIDERS: ATTENDING PHYSICIAN Nurse Practitioner Adult Health; FAMILY PHYSICIAN Internal Medicine Geriatric Medicine; REFERRING PHYSICIAN Surgery Surgical Oncology
DX: C16.0 Malignant neoplasm of cardia (principal); D50.0 Iron deficiency anemia secondary to blood loss (chronic); C78.7 Secondary malignant neoplasm of liver and intrahepatic bile duct
CPT/HCPCS: 36415; 80053; 81003; 82248; 82570; 83735; 84100; 84156; 85025

== ENCOUNTER → 2024-04-07 09:58 | Outpatient (REF) | payer BC, MEDICARE, SELFPAY ==
[2024-04-07 11:35] LABS: % Basophils 0.5 % (0-2); % Eosinophils 2.2 % (0-6); % Immature Granulocytes 0.3 % (0-0.5); % Lymphocytes 18.3 % (20.5-51.1); % Monocytes 9.2 % (1.7-9.3); % Neutrophils 69.5 % (42.2-75.2); Absolute Eosinophils 0.1 10^3/uL (0-0.7); Absolute Lymphocytes 0.7 10^3/uL (1.2-3.4); Absolute Monocytes 0.3 10^3/uL (0.1-0.6); Absolute Neutrophils 2.6 10^3/uL (1.4-6.5); Hematocrit 38.7 % (39.0-52.0); Hemoglobin 12.7 g/dL (13.0-18.0); Mean Corp Hgb Conc. 32.8 g/dL (33.0-37.0); Mean Corpuscular Hgb 30.5 pg (27.0-31.0); Mean Corpuscular Volume 92.8 fL (80.0-94.0); Nucleated Red Blood Cells % 0 % (-); Platelet Count 161 10^3/uL (130-400); Red Blood Cell Count 4.17 10^6/uL (4.70-6.10); Red Cell Dist. Width 18.6 % (11.5-14.5); White Blood Cell Count 3.7 10^3/uL (4.8-10.8)
[2024-04-07 12:25] LABS: ALT (SGPT) 34 U/L (0-50); AST (SGOT) 29 U/L (17-59); Albumin 3.8 g/dl (3.5-5.0); Alkaline Phosphatase 111 U/L (38-126); Blood Urea Nitrogen 11 mg/dl (9-20); Calcium 8.4 mg/dl (8.4-10.2); Carbon Dioxide 28 mmol/L (22-30); Chloride 102 mmol/L (98-107); Glucose 98 mg/dl (70-99); Potassium 3.6 mmol/L (3.5-5.1); Sodium 137 mmol/L (135-145); Total Bilirubin 0.5 mg/dl (0.2-1.3); Total Protein 6.4 g/dl (6.3-8.2); eGFR > 60.00
[2024-04-07 12:34] LABS: TSH 2.17 uIU/ml (0.47-4.68)
[2024-04-09 02:00] LABS: Total T3 (Sendout) 52 ng/dL (80-200)
== END ==
LOC: REG 09:58
PROVIDERS: ATTENDING PHYSICIAN Internal Medicine Hematology & Oncology; FAMILY PHYSICIAN Internal Medicine Geriatric Medicine
DX: C16.0 Malignant neoplasm of cardia (principal); D50.0 Iron deficiency anemia secondary to blood loss (chronic); C78.7 Secondary malignant neoplasm of liver and intrahepatic bile duct
CPT/HCPCS: 36415; 80053; 84439; 84443; 84480; 85025

== ENCOUNTER → 2024-05-25 09:07 | Outpatient (REF) | payer BC, MEDICARE, SELFPAY ==
[2024-05-25 10:26] LABS: % Basophils 0.8 % (0-2); % Immature Granulocytes 0.5 % (0-0.5); % Lymphocytes 22.3 % (20.5-51.1); % Monocytes 10.2 % (1.7-9.3); % Neutrophils 65.2 % (42.2-75.2); Absolute Lymphocytes 0.9 10^3/uL (1.2-3.4); Absolute Monocytes 0.4 10^3/uL (0.1-0.6); Absolute Neutrophils 2.6 10^3/uL (1.4-6.5); Hematocrit 35.1 % (39.0-52.0); Hemoglobin 11.4 g/dL (13.0-18.0); Mean Corp Hgb Conc. 32.5 g/dL (33.0-37.0); Mean Corpuscular Hgb 32.1 pg (27.0-31.0); Mean Corpuscular Volume 98.9 fL (80.0-94.0); Mean Platelet Volume 11.7 fL (7.4-10.4); Nucleated Red Blood Cells % 0 % (-); Platelet Count 175 10^3/uL (130-400); Red Blood Cell Count 3.55 10^6/uL (4.70-6.10); Red Cell Dist. Width 17.2 % (11.5-14.5); White Blood Cell Count 3.9 10^3/uL (4.8-10.8)
[2024-05-25 11:02] LABS: ALT (SGPT) 55 U/L (0-50); AST (SGOT) 40 U/L (17-59); Albumin 3.5 g/dl (3.5-5.0); Alkaline Phosphatase 132 U/L (38-126); Blood Urea Nitrogen 14 mg/dl (9-20); Carbon Dioxide 30 mmol/L (22-30); Chloride 103 mmol/L (98-107); Glucose 93 mg/dl (70-99); Iron 112 ug/dl (49-181); Potassium 2.9 mmol/L (3.5-5.1); Sodium 138 mmol/L (135-145); Total Bilirubin 1.1 mg/dl (0.2-1.3); eGFR > 60.00
[2024-05-25 11:11] LABS: Percent Saturation 64 % (20-50); Total Iron Binding Capacity 174 ug/dl (261-462)
[2024-05-25 11:54] LABS: Vitamin B12 638 pg/ml (239-931)
== END ==
LOC: REG 09:07
PROVIDERS: ATTENDING PHYSICIAN Surgery Surgical Oncology; REFERRING PHYSICIAN Internal Medicine Hematology & Oncology
DX: C16.0 Malignant neoplasm of cardia (principal); D50.0 Iron deficiency anemia secondary to blood loss (chronic); C78.7 Secondary malignant neoplasm of liver and intrahepatic bile duct
CPT/HCPCS: 36415; 80053; 82607; 82728; 83540; 83550; 85025

== ENCOUNTER → 2024-05-30 10:07 | Outpatient (REF) | payer BC, MEDICARE, SELFPAY ==
[2024-05-30 11:25] LABS: % Basophils 0.5 % (0-2); % Eosinophils 0.5 % (0-6); % Immature Granulocytes 0.2 % (0-0.5); % Lymphocytes 20.2 % (20.5-51.1); % Monocytes 11.3 % (1.7-9.3); % Neutrophils 67.3 % (42.2-75.2); Absolute Lymphocytes 0.8 10^3/uL (1.2-3.4); Absolute Monocytes 0.5 10^3/uL (0.1-0.6); Absolute Neutrophils 2.8 10^3/uL (1.4-6.5); Hematocrit 32.6 % (39.0-52.0); Hemoglobin 10.7 g/dL (13.0-18.0); Mean Corp Hgb Conc. 32.8 g/dL (33.0-37.0); Mean Corpuscular Hgb 32.4 pg (27.0-31.0); Mean Corpuscular Volume 98.8 fL (80.0-94.0); Mean Platelet Volume 11.5 fL (7.4-10.4); Nucleated Red Blood Cells % 0 % (-); Platelet Count 164 10^3/uL (130-400); Red Cell Dist. Width 16.7 % (11.5-14.5); White Blood Cell Count 4.2 10^3/uL (4.8-10.8)
[2024-05-30 12:25] LABS: ALT (SGPT) 61 U/L (0-50); AST (SGOT) 45 U/L (17-59); Albumin 3.2 g/dl (3.5-5.0); Alkaline Phosphatase 113 U/L (38-126); Blood Urea Nitrogen 18 mg/dl (9-20); Calcium 8.1 mg/dl (8.4-10.2); Carbon Dioxide 29 mmol/L (22-30); Chloride 105 mmol/L (98-107); Glucose 45 mg/dl (70-99); Potassium 3.1 mmol/L (3.5-5.1); Sodium 140 mmol/L (135-145); Total Bilirubin 0.8 mg/dl (0.2-1.3); Total Protein 5.5 g/dl (6.3-8.2); eGFR > 60.00
[2024-05-30 12:38] LABS: TSH 2.83 uIU/ml (0.47-4.68)
== END ==
LOC: REG 10:07
PROVIDERS: ATTENDING PHYSICIAN Internal Medicine Hematology & Oncology; FAMILY PHYSICIAN Internal Medicine Geriatric Medicine
DX: C16.0 Malignant neoplasm of cardia (principal); D50.0 Iron deficiency anemia secondary to blood loss (chronic); C78.7 Secondary malignant neoplasm of liver and intrahepatic bile duct
CPT/HCPCS: 36415; 80053; 84443; 85025

== ENCOUNTER → 2024-06-06 10:11 | Outpatient (REF) | payer BC, MEDICARE, SELFPAY ==
[2024-06-06 10:56] LABS: % Basophils 0.7 % (0-2); % Eosinophils 0.9 % (0-6); % Immature Granulocytes 0.5 % (0-0.5); % Lymphocytes 19.4 % (20.5-51.1); % Monocytes 8.7 % (1.7-9.3); % Neutrophils 69.8 % (42.2-75.2); Absolute Lymphocytes 0.8 10^3/uL (1.2-3.4); Absolute Monocytes 0.4 10^3/uL (0.1-0.6); Hematocrit 35.1 % (39.0-52.0); Hemoglobin 11.4 g/dL (13.0-18.0); Mean Corp Hgb Conc. 32.5 g/dL (33.0-37.0); Mean Corpuscular Hgb 32.9 pg (27.0-31.0); Mean Corpuscular Volume 101.2 fL (80.0-94.0); Mean Platelet Volume 11.1 fL (7.4-10.4); Nucleated Red Blood Cells % 0 % (-); Platelet Count 179 10^3/uL (130-400); Red Blood Cell Count 3.47 10^6/uL (4.70-6.10); Red Cell Dist. Width 16.6 % (11.5-14.5); White Blood Cell Count 4.2 10^3/uL (4.8-10.8)
[2024-06-06 11:14] LABS: NT-proBNP 429 pg/ml
[2024-06-06 11:30] LABS: ALT (SGPT) 132 U/L (0-50); AST (SGOT) 131 U/L (17-59); Albumin 3.4 g/dl (3.5-5.0); Alkaline Phosphatase 127 U/L (38-126); Blood Urea Nitrogen 14 mg/dl (9-20); Calcium 8.6 mg/dl (8.4-10.2); Carbon Dioxide 31 mmol/L (22-30); Chloride 104 mmol/L (98-107); Glucose 81 mg/dl (70-99); Magnesium 1.9 mg/dl (1.6-2.3); Potassium 4.1 mmol/L (3.5-5.1); Sodium 138 mmol/L (135-145); Total Bilirubin 0.9 mg/dl (0.2-1.3); Total Protein 5.7 g/dl (6.3-8.2); eGFR > 60.00
[2024-06-08 10:30] LABS: GGTP 16 U/L (15-73)
== END ==
LOC: REG 10:11
PROVIDERS: ATTENDING PHYSICIAN Nurse Practitioner Family; FAMILY PHYSICIAN Internal Medicine Geriatric Medicine
DX: R60.0 Localized edema (principal); D64.9 Anemia, unspecified; E87.6 Hypokalemia
CPT/HCPCS: 36415; 80053; 82977; 83735; 83880; 84100; 85025

== ENCOUNTER → 2024-06-13 13:06 | Outpatient (REF) | payer BC, MEDICARE, SELFPAY ==
[2024-06-13 14:37] LABS: ALT (SGPT) 93 U/L (0-50); AST (SGOT) 48 U/L (17-59); Alkaline Phosphatase 114 U/L (38-126); Blood Urea Nitrogen 15 mg/dl (9-20); Calcium 8.3 mg/dl (8.4-10.2); Carbon Dioxide 31 mmol/L (22-30); Chloride 106 mmol/L (98-107); Glucose 83 mg/dl (70-99); Potassium 3.6 mmol/L (3.5-5.1); Sodium 139 mmol/L (135-145); Total Bilirubin 0.8 mg/dl (0.2-1.3); Total Protein 5.4 g/dl (6.3-8.2); eGFR > 60.00
[2024-06-14 09:13] LABS: Glycohemoglobin (HgbA1c) 4.6 % (4.0-5.6)
== END ==
LOC: REG 13:06
PROVIDERS: ATTENDING PHYSICIAN Nurse Practitioner Family; FAMILY PHYSICIAN Internal Medicine Geriatric Medicine
DX: R74.8 Abnormal levels of other serum enzymes (principal)
CPT/HCPCS: 36415; 80053; 83036

== ENCOUNTER → 2024-07-05 09:30 | Outpatient (REF) | payer BC, SELFPAY ==
[2024-07-05 10:32] LABS: % Basophils 0.3 % (0-2); % Eosinophils 0.6 % (0-6); % Immature Granulocytes 0.3 % (0-0.5); % Lymphocytes 18.8 % (20.5-51.1); % Monocytes 11.7 % (1.7-9.3); % Neutrophils 68.3 % (42.2-75.2); Absolute Lymphocytes 0.7 10^3/uL (1.2-3.4); Absolute Monocytes 0.4 10^3/uL (0.1-0.6); Absolute Neutrophils 2.4 10^3/uL (1.4-6.5); Hematocrit 33.4 % (39.0-52.0); Hemoglobin 10.7 g/dL (13.0-18.0); Mean Corpuscular Hgb 33.9 pg (27.0-31.0); Mean Corpuscular Volume 105.7 fL (80.0-94.0); Mean Platelet Volume 11.1 fL (7.4-10.4); Nucleated Red Blood Cells % 0 % (-); Platelet Count 187 10^3/uL (130-400); Red Blood Cell Count 3.16 10^6/uL (4.70-6.10); Red Cell Dist. Width 14.6 % (11.5-14.5); White Blood Cell Count 3.5 10^3/uL (4.8-10.8)
[2024-07-05 11:07] LABS: ALT (SGPT) 67 U/L (0-50); AST (SGOT) 37 U/L (17-59); Albumin 2.9 g/dl (3.5-5.0); Alkaline Phosphatase 111 U/L (38-126); Blood Urea Nitrogen 19 mg/dl (9-20); Carbon Dioxide 30 mmol/L (22-30); Chloride 107 mmol/L (98-107); Glucose 68 mg/dl (70-99); Sodium 142 mmol/L (135-145); Total Bilirubin 0.5 mg/dl (0.2-1.3); Total Protein 5.2 g/dl (6.3-8.2); eGFR > 60.00
[2024-07-05 11:26] LABS: TSH 1.92 uIU/ml (0.47-4.68)
== END ==
LOC: REG 09:30
PROVIDERS: ATTENDING PHYSICIAN Internal Medicine Hematology & Oncology; FAMILY PHYSICIAN Internal Medicine Geriatric Medicine
DX: C16.0 Malignant neoplasm of cardia (principal); D50.0 Iron deficiency anemia secondary to blood loss (chronic); C78.7 Secondary malignant neoplasm of liver and intrahepatic bile duct
CPT/HCPCS: 36415; 80053; 84443; 85025

== ENCOUNTER → 2024-07-22 08:16 | Outpatient (REF) | payer BC, SELFPAY ==
[2024-07-22 13:35] LABS: HDL Cholesterol 63 mg/dl; LDL Cholesterol, Calculated 32 mg/dl; Total Cholesterol 104 mg/dl (50-199); Triglyceride 49 mg/dl (10-149); Very Low Density Lipoprotein 9 mg/dl (0-30)
== END ==
LOC: REG 08:16
PROVIDERS: ATTENDING PHYSICIAN Internal Medicine; FAMILY PHYSICIAN Internal Medicine Geriatric Medicine
DX: E78.2 Mixed hyperlipidemia (principal); R60.0 Localized edema
CPT/HCPCS: 36415; 80061

== ENCOUNTER → 2024-08-02 09:08 | Outpatient (REF) | payer BC, MEDICARE, SELFPAY | LOC: RCS 09:08 | PROVIDERS: ATTENDING PHYSICIAN Internal Medicine; FAMILY PHYSICIAN Internal Medicine Geriatric Medicine; REFERRING PHYSICIAN Internal Medicine Hematology & Oncology | DX: R60.0 Localized edema (principal) | CPT/HCPCS: 93306 ==

== ENCOUNTER → 2024-08-08 10:36 | Outpatient (REF) | payer BC, MEDICARE, SELFPAY ==
[2024-08-08 12:20] LABS: % Basophils 0.5 % (0-2); % Eosinophils 0.5 % (0-6); % Immature Granulocytes 0.2 % (0-0.5); % Lymphocytes 14.4 % (20.5-51.1); % Monocytes 10.2 % (1.7-9.3); % Neutrophils 74.2 % (42.2-75.2); Absolute Lymphocytes 0.9 10^3/uL (1.2-3.4); Absolute Monocytes 0.6 10^3/uL (0.1-0.6); Absolute Neutrophils 4.6 10^3/uL (1.4-6.5); Hematocrit 34.7 % (39.0-52.0); Hemoglobin 11.2 g/dL (13.0-18.0); Mean Corp Hgb Conc. 32.3 g/dL (33.0-37.0); Mean Corpuscular Hgb 34.7 pg (27.0-31.0); Mean Corpuscular Volume 107.4 fL (80.0-94.0); Mean Platelet Volume 10.5 fL (7.4-10.4); Nucleated Red Blood Cells % 0 % (-); Platelet Count 209 10^3/uL (130-400); Red Blood Cell Count 3.23 10^6/uL (4.70-6.10); Red Cell Dist. Width 14.1 % (11.5-14.5); White Blood Cell Count 6.2 10^3/uL (4.8-10.8)
[2024-08-08 12:40] LABS: D-Dimer 0.68 ug/mlFEU (0.00-0.50)
[2024-08-08 14:31] LABS: Blood Urea Nitrogen 17 mg/dl (9-20); Calcium 8.5 mg/dl (8.4-10.2); Carbon Dioxide 27 mmol/L (22-30); Chloride 106 mmol/L (98-107); Glucose 70 mg/dl (70-99); Potassium 4.6 mmol/L (3.5-5.1); Sodium 139 mmol/L (135-145); eGFR > 60.00
== END ==
LOC: REG 10:36
PROVIDERS: ATTENDING PHYSICIAN Nurse Practitioner Family; FAMILY PHYSICIAN Internal Medicine Geriatric Medicine
DX: M25.562 Pain in left knee (principal); M25.462 Effusion, left knee; M79.89 Other specified soft tissue disorders; D64.9 Anemia, unspecified; E87.6 Hypokalemia
CPT/HCPCS: 36415; 73564; 80048; 85025; 85379

== ENCOUNTER 2024-08-09 13:53 | Outpatient (RCR) | payer BC, SELFPAY | END 2024-08-09 23:59 | disposition home or self-care (01) | LOC: RPT 13:53 | PROVIDERS: ATTENDING PHYSICIAN Internal Medicine Hematology & Oncology; FAMILY PHYSICIAN Internal Medicine Geriatric Medicine | DX: C16.9 Malignant neoplasm of stomach, unspecified (principal); C78.7 Secondary malignant neoplasm of liver and intrahepatic bile duct; D50.0 Iron deficiency anemia secondary to blood loss (chronic); Z73.6 Limitation of activities due to disability; M62.81 Muscle weakness (generalized); R53.0 Neoplastic (malignant) related fatigue; G62.9 Polyneuropathy, unspecified; R26.2 Difficulty in walking, not elsewhere classified; R26.89 Other abnormalities of gait and mobility; Z85.01 Personal history of malignant neoplasm of esophagus; Z90.3 Acquired absence of stomach [part of] | CPT/HCPCS: 97110; 97112; 97163; 97530 ==

== ENCOUNTER 2024-08-30 09:07 | Outpatient (RCR) | payer BC, SELFPAY | END 2024-08-30 23:59 | disposition home or self-care (01) | LOC: RPT 09:07 | PROVIDERS: ATTENDING PHYSICIAN Internal Medicine Hematology & Oncology; FAMILY PHYSICIAN Internal Medicine Geriatric Medicine | DX: C16.9 Malignant neoplasm of stomach, unspecified (principal); C78.7 Secondary malignant neoplasm of liver and intrahepatic bile duct; D50.0 Iron deficiency anemia secondary to blood loss (chronic); Z73.6 Limitation of activities due to disability; M62.81 Muscle weakness (generalized); R53.0 Neoplastic (malignant) related fatigue; G62.9 Polyneuropathy, unspecified; R26.2 Difficulty in walking, not elsewhere classified; R26.89 Other abnormalities of gait and mobility; Z85.01 Personal history of malignant neoplasm of esophagus; Z90.3 Acquired absence of stomach [part of] | CPT/HCPCS: 36415; 80053; 84439; 84443; 84480; 85025; 97110; 97112; 97530 ==

== ENCOUNTER → 2024-08-31 10:57 | Outpatient (REF) | payer BC, SELFPAY ==
[2024-08-31 11:46] LABS: Glycohemoglobin (HgbA1c) 4.2 % (4.0-5.6)
[2024-08-31 14:03] LABS: Blood Urea Nitrogen 29 mg/dl (9-20); Calcium 8.9 mg/dl (8.4-10.2); Carbon Dioxide 28 mmol/L (22-30); Chloride 109 mmol/L (98-107); Glucose 62 mg/dl (70-99); Potassium 4.6 mmol/L (3.5-5.1); Sodium 141 mmol/L (135-145); eGFR > 60.00
== END ==
LOC: REG 10:57
PROVIDERS: ATTENDING PHYSICIAN Internal Medicine Hematology & Oncology; FAMILY PHYSICIAN Internal Medicine Geriatric Medicine; OTHER PHYSICIAN Internal Medicine
DX: R60.0 Localized edema (principal); C16.0 Malignant neoplasm of cardia; D50.0 Iron deficiency anemia secondary to blood loss (chronic); C78.7 Secondary malignant neoplasm of liver and intrahepatic bile duct
CPT/HCPCS: 36415; 80048; 83036

== ENCOUNTER → 2024-10-05 13:42 | Outpatient (REF) | payer BC, SELFPAY ==
[2024-10-05 15:34] LABS: Hematocrit 29.7 % (39.0-52.0); Hemoglobin 9.4 g/dL (13.0-18.0); Mean Corp Hgb Conc. 31.6 g/dL (33.0-37.0); Mean Corpuscular Volume 106.8 fL (80.0-94.0); Nucleated Red Blood Cells % 0 % (-); Platelet Count 297 10^3/uL (130-400); Red Cell Dist. Width 13.0 % (11.5-14.5)
[2024-10-05 15:49] LABS: ALT (SGPT) 26 U/L (0-50); AST (SGOT) 23 U/L (17-59); Albumin 3.0 g/dl (3.5-5.0); Alkaline Phosphatase 96 U/L (38-126); Blood Urea Nitrogen 18 mg/dl (9-20); Calcium 8.2 mg/dl (8.4-10.2); Carbon Dioxide 34 mmol/L (22-30); Chloride 105 mmol/L (98-107); Glucose 115 mg/dl (70-99); Potassium 3.6 mmol/L (3.5-5.1); Sodium 138 mmol/L (135-145); Total Protein 5.6 g/dl (6.3-8.2); eGFR > 60.00
== END ==
LOC: RAD 13:42
PROVIDERS: ATTENDING PHYSICIAN Nurse Practitioner Adult Health; FAMILY PHYSICIAN Internal Medicine Geriatric Medicine
DX: R60.0 Localized edema (principal); Z79.899 Other long term (current) drug therapy; R04.0 Epistaxis
CPT/HCPCS: 36415; 80053; 85025; 93971

== ENCOUNTER 2024-10-11 13:11 | Outpatient (RCR) | payer BC, SELFPAY | END 2024-10-11 23:59 | disposition home or self-care (01) | LOC: RPT 13:11 | PROVIDERS: ATTENDING PHYSICIAN Surgery Surgical Oncology; FAMILY PHYSICIAN Internal Medicine Geriatric Medicine | DX: C16.9 Malignant neoplasm of stomach, unspecified (principal); C78.7 Secondary malignant neoplasm of liver and intrahepatic bile duct; D50.0 Iron deficiency anemia secondary to blood loss (chronic); Z73.6 Limitation of activities due to disability; M62.81 Muscle weakness (generalized); R53.0 Neoplastic (malignant) related fatigue; G62.9 Polyneuropathy, unspecified; R26.2 Difficulty in walking, not elsewhere classified; R26.89 Other abnormalities of gait and mobility; Z85.01 Personal history of malignant neoplasm of esophagus; Z90.3 Acquired absence of stomach [part of] | CPT/HCPCS: 97110; 97112; 97530 ==

== ENCOUNTER → 2024-11-03 11:19 | Outpatient (REF) | payer BC, SELFPAY ==
[2024-11-03 12:46] LABS: Hematocrit 31.1 % (39.0-52.0); Hemoglobin 9.4 g/dL (13.0-18.0); Mean Corp Hgb Conc. 30.2 g/dL (33.0-37.0); Mean Corpuscular Volume 101.3 fL (80.0-94.0); Nucleated Red Blood Cells % 0 % (-); Platelet Count 426 10^3/uL (130-400); Red Cell Dist. Width 13.4 % (11.5-14.5)
[2024-11-03 13:39] LABS: ALT (SGPT) 24 U/L (0-50); AST (SGOT) 25 U/L (17-59); Albumin 2.8 g/dl (3.5-5.0); Alkaline Phosphatase 88 U/L (38-126); Blood Urea Nitrogen 18 mg/dl (9-20); Calcium 8.0 mg/dl (8.4-10.2); Carbon Dioxide 32 mmol/L (22-30); Chloride 104 mmol/L (98-107); Glucose 121 mg/dl (70-99); Potassium 3.7 mmol/L (3.5-5.1); Sodium 139 mmol/L (135-145); Total Protein 5.9 g/dl (6.3-8.2); eGFR > 60.00
[2024-11-03 14:08] LABS: TSH 2.26 uIU/ml (0.47-4.68)
[2024-11-04 11:17] LABS: Iron 31 ug/dl (49-181)
[2024-11-04 11:27] LABS: Total Iron Binding Capacity 197 ug/dl (261-462)
[2024-11-04 11:51] LABS: Ferritin 336.0 ng/ml (17.9-464.0)
[2024-11-04 12:23] LABS: Folate 16.4 ng/ml (2.76-20); Vitamin B12 221 pg/ml (239-931)
== END ==
LOC: REG 11:19
PROVIDERS: ATTENDING PHYSICIAN Internal Medicine Hematology & Oncology; FAMILY PHYSICIAN Internal Medicine Geriatric Medicine; OTHER PHYSICIAN Internal Medicine; OTHER PHYSICIAN Nurse Practitioner Family; REFERRING PHYSICIAN Surgery Surgical Oncology
DX: C16.0 Malignant neoplasm of cardia (principal); D50.0 Iron deficiency anemia secondary to blood loss (chronic); C78.7 Secondary malignant neoplasm of liver and intrahepatic bile duct
CPT/HCPCS: 36415; 80053; 82607; 82728; 82746; 83540; 83550; 84443; 85025

== ENCOUNTER → 2024-11-11 10:59 | Outpatient (REF) | payer BC, SELFPAY ==
[2024-11-11 12:03] LABS: Hematocrit 30.0 % (39.0-52.0); Hemoglobin 9.1 g/dL (13.0-18.0); Mean Corp Hgb Conc. 30.3 g/dL (33.0-37.0); Mean Corpuscular Volume 99.0 fL (80.0-94.0); Nucleated Red Blood Cells % 0 % (-); Platelet Count 424 10^3/uL (130-400); Red Cell Dist. Width 14.0 % (11.5-14.5)
[2024-11-11 13:21] LABS: ALT (SGPT) 28 U/L (0-50); AST (SGOT) 26 U/L (17-59); Albumin 3.0 g/dl (3.5-5.0); Alkaline Phosphatase 98 U/L (38-126); Blood Urea Nitrogen 19 mg/dl (9-20); Calcium 8.3 mg/dl (8.4-10.2); Carbon Dioxide 34 mmol/L (22-30); Chloride 101 mmol/L (98-107); Glucose 84 mg/dl (70-99); Potassium 4.4 mmol/L (3.5-5.1); Sodium 137 mmol/L (135-145); Total Protein 6.0 g/dl (6.3-8.2); eGFR > 60.00
== END ==
LOC: REG 10:59
PROVIDERS: ATTENDING PHYSICIAN Internal Medicine; FAMILY PHYSICIAN Internal Medicine Geriatric Medicine; OTHER PHYSICIAN Surgery Surgical Oncology; REFERRING PHYSICIAN Internal Medicine Hematology & Oncology
DX: E78.2 Mixed hyperlipidemia (principal); I25.10 Atherosclerotic heart disease of native coronary artery without angina pectoris; R60.0 Localized edema
CPT/HCPCS: 36415; 80053; 83880; 85025

== ENCOUNTER → 2024-11-28 14:26 | Outpatient (REF) | payer BC, SELFPAY ==
[2024-11-28 14:58] LABS: Hematocrit 32.2 % (39.0-52.0); Hemoglobin 9.8 g/dL (13.0-18.0); Mean Corp Hgb Conc. 30.4 g/dL (33.0-37.0); Mean Corpuscular Volume 97.0 fL (80.0-94.0); Nucleated Red Blood Cells % 0 % (-); Platelet Count 278 10^3/uL (130-400); Red Cell Dist. Width 15.6 % (11.5-14.5)
[2024-11-28 15:25] LABS: ALT (SGPT) 35 U/L (0-50); AST (SGOT) 28 U/L (17-59); Albumin 3.2 g/dl (3.5-5.0); Alkaline Phosphatase 92 U/L (38-126); Blood Urea Nitrogen 19 mg/dl (9-20); Calcium 8.7 mg/dl (8.4-10.2); Carbon Dioxide 29 mmol/L (22-30); Chloride 104 mmol/L (98-107); Glucose 115 mg/dl (70-99); Potassium 4.3 mmol/L (3.5-5.1); Sodium 138 mmol/L (135-145); Total Protein 6.3 g/dl (6.3-8.2); eGFR > 60.00
[2024-11-28 15:56] LABS: TSH 0.84 uIU/ml (0.47-4.68)
== END ==
LOC: REG 14:26
PROVIDERS: ATTENDING PHYSICIAN Internal Medicine Hematology & Oncology; FAMILY PHYSICIAN Internal Medicine Geriatric Medicine; OTHER PHYSICIAN Internal Medicine; OTHER PHYSICIAN Surgery Surgical Oncology
DX: C16.0 Malignant neoplasm of cardia (principal); D50.0 Iron deficiency anemia secondary to blood loss (chronic); C78.7 Secondary malignant neoplasm of liver and intrahepatic bile duct
CPT/HCPCS: 36415; 80053; 84443; 85025

== ENCOUNTER → 2024-12-09 13:19 | Outpatient (REF) | payer MEDICARE, BC, SELFPAY ==
[2024-12-09 14:02] LABS: Hematocrit 32.5 % (39.0-52.0); Hemoglobin 9.8 g/dL (13.0-18.0); Mean Corp Hgb Conc. 30.2 g/dL (33.0-37.0); Mean Corpuscular Volume 95.9 fL (80.0-94.0); Nucleated Red Blood Cells % 0 % (-); Platelet Count 361 10^3/uL (130-400); Red Cell Dist. Width 15.0 % (11.5-14.5)
[2024-12-09 16:53] LABS: ALT (SGPT) 23 U/L (0-50); AST (SGOT) 21 U/L (17-59); Albumin 3.1 g/dl (3.5-5.0); Alkaline Phosphatase 86 U/L (38-126); Blood Urea Nitrogen 17 mg/dl (9-20); Calcium 8.2 mg/dl (8.4-10.2); Carbon Dioxide 33 mmol/L (22-30); Chloride 100 mmol/L (98-107); Glucose 126 mg/dl (70-99); Potassium 4.4 mmol/L (3.5-5.1); Sodium 135 mmol/L (135-145); Total Protein 6.2 g/dl (6.3-8.2); eGFR > 60.00
[2024-12-09 17:42] LABS: TSH 0.79 uIU/ml (0.47-4.68)
== END ==
LOC: REG 13:19
PROVIDERS: ATTENDING PHYSICIAN Internal Medicine Hematology & Oncology; FAMILY PHYSICIAN Internal Medicine Geriatric Medicine
DX: C16.0 Malignant neoplasm of cardia (principal); D50.0 Iron deficiency anemia secondary to blood loss (chronic); C78.7 Secondary malignant neoplasm of liver and intrahepatic bile duct; D51.9 Vitamin B12 deficiency anemia, unspecified; R18.8 Other ascites
CPT/HCPCS: 36415; 80053; 84443; 85025

== ENCOUNTER → 2024-12-10 10:42 | Outpatient (REF) | payer MEDICARE, BC, SELFPAY | LOC: REG 10:42 | PROVIDERS: ATTENDING PHYSICIAN Nurse Practitioner Family | DX: R63.4 Abnormal weight loss (principal); Z90.3 Acquired absence of stomach [part of] | CPT/HCPCS: 82653; 82705 ==

== ENCOUNTER 2024-12-28 19:16 | Emergency (ER) | payer BC, SELFPAY ==
[2024-12-28 19:18] VITALS: BP 159/76
[2024-12-28 19:41] LABS: Hematocrit 33.7 % (39.0-52.0); Hemoglobin 10.3 g/dL (13.0-18.0); Mean Corp Hgb Conc. 30.6 g/dL (33.0-37.0); Mean Corpuscular Volume 94.4 fL (80.0-94.0); Nucleated Red Blood Cells % 0 % (-); Platelet Count 447 10^3/uL (130-400); Red Cell Dist. Width 15.3 % (11.5-14.5)
[2024-12-28 19:58] LABS: ALT (SGPT) 25 U/L (0-50); AST (SGOT) 28 U/L (17-59); Albumin 3.0 g/dl (3.5-5.0); Alkaline Phosphatase 90 U/L (38-126); Blood Urea Nitrogen 22 mg/dl (9-20); Calcium 8.3 mg/dl (8.4-10.2); Carbon Dioxide 38 mmol/L (22-30); Chloride 99 mmol/L (98-107); Glucose 87 mg/dl (70-99); Lipase 21 U/L (23-300); Potassium 3.6 mmol/L (3.5-5.1); Sodium 138 mmol/L (135-145); Total Protein 6.5 g/dl (6.3-8.2); eGFR > 60.00
[2024-12-28 23:15] VITALS: BP 136/81
[2024-12-28 23:18] VITALS: BMI 18.7
[2024-12-28] MEDS: OMNIPAQUE 50 ML PO (23:58)
[2024-12-29 00:02] VITALS: BP 152/87
--- NOTE | 2024-12-29 00:07 | ED.GENMED ---
History of Present Illness
General
Chief Complaint: Abdominal Pain
Source: patient
Exam Limitations: none
Time Seen by Provider: 12/28/24 23:05
Nursing documentation reviewed up to this point in time: agreed with
History of Present Illness
History of Present Illness:
79-year-old male past ministry of CAD hypertension hyperlipidemia presenting to the emergency department today with concerns of abdominal pain has been progressive over the past week associated nausea no vomiting or diarrhea. Spoke with his cancer
doctor and recommended go to the ER for assessment of this. Claims it is mainly to the upper abdomen has been intermittent worse after meals. Denies any chest pain or shortness of breath.
Past History
Past History
ED Past Medical History: CAD, Cancer (Esophageal and stomach), HTN, Hypercholesterolemia, Hypothyroidism and Other (Anemia)
ED Past Surgical History: None, Cardiac (Stents X 6), Orthopedic ([place] rotator cuff , left knee surgery, ORIF L ankle, ) and Other (Hernia, G- tube, Port, Laparotomy)
Social History
Tobacco: Former smoker
Alcohol: None
Drug: None
Personal:
Living: with family
Review of Systems
Review of Systems
Allergies reviewed?: Yes
All Other Systems: ROS reviewed and negative except as documented in HPI and ROS
Phy Exam
Physical Exam
Physical Exam:
GENERAL: Alert , in no apparent distress
EYE: pupils equal and reactive
NECK: Supple, no significant adenopathy.
ENT: o/p clr, mmm.
CARDIAC: Regular rate and rhythm .
LUNGS: Clear breath sounds bilaterally, no acute respiratory distress, no wheezes/rales/rhonchi
ABDOMEN: Vague discomfort to the top of the abdomen no discomfort to the lower abdomen otherwise soft, without focal tenderness, no r/g, no cvat
NEUROLOGICAL: Alert and oriented, no focal neuro deficits
SKIN: Warm and dry, skin intact.
MUSCULOSKELETAL: No edema, well perfused.
PSYCH: Normal and appropriate interaction.
Course
Orders/Labs/Results
Orders:
Orders
12/28/24 19:21
Electrocardiogram (*1) Urgent
Reason for Study: Abdominal Pain
EKG- Treatment ONCE
12/28/24 19:35
Complete Blood Count/With Diff Urgent
Comprehensive Metabolic Panel Urgent
Lipase Urgent
12/28/24 23:27
Iohexol [Omnipaque] See Protocol PO NOW STA
12/29/24
CT Abd/pel W Iv And Oral Contr Urgent
Reason For Exam: abd pain, hx of distal esophagus and stomach remov
Abnormal Lab Results
12/28/24
19:35
RBC 3.57 L 10^6/uL
(4.70-6.10)
Hgb 10.3 L g/dL
(13.0-18.0)
Hct 33.7 L %
(39.0-52.0)
MCV 94.4 H fL
(80.0-94.0)
MCHC 30.6 L g/dL
(33.0-37.0)
RDW 15.3 H %
(11.5-14.5)
Plt Count 447 H 10^3/uL
(130-400)
Absolute Lymphs (auto) 0.8 L 10^3/uL
(1.2-3.4)
Absolute Monos (auto) 0.7 H 10^3/uL
(0.1-0.6)
Neutrophils % 80.8 H %
(42.2-75.2)
Lymphocytes % 9.7 L %
(20.5-51.1)
Carbon Dioxide 38 H mmol/L
(22-30)
BUN 22 H mg/dl
(9-20)
Creatinine 0.6 L mg/dL
(0.7-1.3)
Calcium 8.3 L mg/dl
(8.4-10.2)
Albumin 3.0 L g/dl
(3.5-5.0)
Lipase 21 L U/L
(23-300)
12/28/24 19:35
12/28/24 19:35
Vital Signs
Initial and Last Documented VS:
Initial Vital Signs
Temp Pulse Resp BP Pulse Ox
98.2 F 67 16 159/76 98
12/28/24 19:18 12/28/24 19:18 12/28/24 19:18 12/28/24 19:18 12/28/24 19:18
Last Documented Vital Signs
Temp Pulse Resp BP Pulse Ox
98.2 F 74 23 123/85 96
12/28/24 19:18 12/29/24 02:15 12/29/24 01:00 12/29/24 02:00 12/29/24 02:15
MDM/Problems Addressed
MDM/Problems Addressed:
79-year-old male presenting to the emergency department today with concerns of mainly upper abdominal discomfort. Does have a history of stomach cancer with stomach removal as well as distal esophagus removal in 2022. Has associated nausea no
vomiting or diarrhea. Plan for CT scan for further assessment otherwise labs unremarkable vital signs normal. CT scan without emergent findings. Patient comfortable here in no distress. He was advised for close outpatient follow-up. Return
precautions given.
*Pulse Oximetry
SaO2: 97
Oxygen Mode of Delivery: Room air
Patient hypoxic: no (96)
*Critical Care Note
Total Time (30-74mins, 75-104mins- exclusive of procedures): Not Applicable
ED Attending Note
-
Portions of this chart may have been created with voice recognition software.� Occasional wrong word or��sound alike� substitutions may have occurred due to the inherent limitations of voice recognition software.
Discharge Plan
Departure
Patient Disposition: Home (Routine Discharge)
Date of Disposition: 12/29/24
Time of Disposition: 03:41
Patient with high blood pressure during this ER visit?: No
Condition: Good
Covid-19: Not Applicable
Discharge Problem:
Abdominal pain
Instructions: Abdominal Pain
Prescriptions:
No Action
levothyroxine [Synthroid] 50 MCG tablet
50 mcg PO DAILY
allopurinol 300 mg Tablet
300 mg PO DAILY
polyethylene glycol 3350 [Miralax] 17 gram Powder In Packet
17 g PO DAILYPRN PRN (Reason: constipation)
sucralfate 100 mg/mL Suspension
10 ml PO QID
metoprolol tartrate 25 mg Tablet
25 mg PO BIDPRN PRN (Reason: BLOOD PRESSURE)
omeprazole 40 mg capsule,delayed release(DR/EC)
40 mg PO DAILY
cholestyramine (with sugar) 4 gram powder in packet
1 ea PO BID
Eliquis 5 mg Tablet
5 mg PO BID
(DME) blood-glucose meter [Accu-Chek Guide Glucose Meter] Misc
Qty: 1 0RF
Rx Instructions:
As Directed
(DME) Accu-Chek Guide test strips Strip
Qty: 200 0RF
Rx Instructions:
As Directed
(DME) lancets [Accu-Chek Softclix Lancets] Misc
Qty: 200 0RF
Rx Instructions:
As Directed
Referrals:
Issa Pratt CRNP [Family Provider, General]
Activity Restrictions/Additional Instructions:
You came to the emergency department today with concerns of abdominal pain. Here you have a reassuring assessment. No signs of emergent process. Please follow closely with GI. Return for any worsening, new or concerning symptoms.
Interventions
Interventions:
*Risk Screen - Suicide Last Done: 12/28/24 19:18
*Neglect/Abuse Screening Last Done: 12/28/24 19:18
CP-Ssaxlh-Mczysfvrul Assessment Last Done: 12/28/24 23:10
Discharge Date and Time
Print Language: [place]
[2024-12-29 01:00] VITALS: BP 156/79
[2024-12-29 02:00] VITALS: BP 123/85
[2024-12-29 03:47] VITALS: BP 122/75
== END 2024-12-29 03:57 | disposition home or self-care (01) ==
LOC: EMR 19:16
PROVIDERS: Emergency Medicine; EMERGENCY PHYSICIAN Emergency Medicine; FAMILY PHYSICIAN Nurse Practitioner Family
DX: R10.9 Unspecified abdominal pain (principal); I25.10 Atherosclerotic heart disease of native coronary artery without angina pectoris; I10 Essential (primary) hypertension; E78.00 Pure hypercholesterolemia, unspecified; E03.9 Hypothyroidism, unspecified; Z95.5 Presence of coronary angioplasty implant and graft; Z85.028 Personal history of other malignant neoplasm of stomach; Z90.3 Acquired absence of stomach [part of]; Z85.01 Personal history of malignant neoplasm of esophagus; Z87.891 Personal history of nicotine dependence
CPT/HCPCS: 99284; 74177; 80053; 83690; 85025; 93005; Q9967

== ENCOUNTER → 2025-01-16 14:09 | Outpatient (REF) | payer BC, SELFPAY ==
[2025-01-16 14:51] LABS: Hematocrit 31.9 % (39.0-52.0); Hemoglobin 9.5 g/dL (13.0-18.0); Mean Corp Hgb Conc. 29.8 g/dL (33.0-37.0); Mean Corpuscular Volume 93.8 fL (80.0-94.0); Nucleated Red Blood Cells % 0 % (-); Platelet Count 389 10^3/uL (130-400); Red Cell Dist. Width 16.8 % (11.5-14.5)
[2025-01-16 15:11] LABS: ALT (SGPT) 32 U/L (0-50); AST (SGOT) 28 U/L (17-59); Albumin 2.9 g/dl (3.5-5.0); Alkaline Phosphatase 94 U/L (38-126); Blood Urea Nitrogen 15 mg/dl (9-20); Calcium 8.3 mg/dl (8.4-10.2); Carbon Dioxide 34 mmol/L (22-30); Chloride 102 mmol/L (98-107); Glucose 131 mg/dl (70-99); Iron 27 ug/dl (49-181); Potassium 3.8 mmol/L (3.5-5.1); Sodium 135 mmol/L (135-145); Total Protein 6.5 g/dl (6.3-8.2); Uric Acid 2.5 mg/dl (3.5-8.5); eGFR > 60.00
[2025-01-16 15:13] LABS: C-Reactive Protein 39.60 mg/L (0.0-10.00)
[2025-01-16 15:20] LABS: Total Iron Binding Capacity 200 ug/dl (261-462)
[2025-01-16 15:31] LABS: Vitamin D, 25-OH*** 29.7 ng/mL (30-80)
[2025-01-16 15:44] LABS: TSH 2.72 uIU/ml (0.47-4.68)
[2025-01-16 15:48] LABS: Ferritin 283.0 ng/ml (17.9-464.0)
[2025-01-16 16:03] LABS: Vitamin B12 416 pg/ml (239-931)
== END ==
LOC: REG 14:09
PROVIDERS: ATTENDING PHYSICIAN Internal Medicine Hematology & Oncology; FAMILY PHYSICIAN Nurse Practitioner Primary Care
DX: C16.0 Malignant neoplasm of cardia (principal); D50.0 Iron deficiency anemia secondary to blood loss (chronic); C78.7 Secondary malignant neoplasm of liver and intrahepatic bile duct; E03.9 Hypothyroidism, unspecified; M25.50 Pain in unspecified joint; D64.9 Anemia, unspecified; E83.51 Hypocalcemia; E53.8 Deficiency of other specified B group vitamins; E61.1 Iron deficiency; M1A.9XX0 Chronic gout, unspecified, without tophus (tophi)
CPT/HCPCS: 36415; 80053; 82306; 82330; 82550; 82607; 82728; 83540; 83550; 83970; 84443; 84550; 85025; 85652; 86038; 86140; 86430; 86618

== ENCOUNTER → 2025-03-03 14:15 | Outpatient (REF) | payer BC, SELFPAY ==
[2025-03-03 15:09] LABS: Hematocrit 31.6 % (39.0-52.0); Hemoglobin 9.8 g/dL (13.0-18.0); Mean Corp Hgb Conc. 31.0 g/dL (33.0-37.0); Mean Corpuscular Volume 96.6 fL (80.0-94.0); Nucleated Red Blood Cells % 0 % (-); Platelet Count 335 10^3/uL (130-400); Red Cell Dist. Width 16.5 % (11.5-14.5)
[2025-03-03 15:33] LABS: ALT (SGPT) 15 U/L (0-50); AST (SGOT) 22 U/L (17-59); Albumin 2.9 g/dl (3.5-5.0); Alkaline Phosphatase 110 U/L (38-126); Blood Urea Nitrogen 17 mg/dl (9-20); Calcium 7.9 mg/dl (8.4-10.2); Carbon Dioxide 35 mmol/L (22-30); Chloride 99 mmol/L (98-107); Glucose 101 mg/dl (70-99); Potassium 3.3 mmol/L (3.5-5.1); Sodium 139 mmol/L (135-145); Total Protein 6.1 g/dl (6.3-8.2); eGFR > 60.00
[2025-03-03 16:08] LABS: TSH 2.90 uIU/ml (0.47-4.68)
== END ==
LOC: REG 14:15
PROVIDERS: ATTENDING PHYSICIAN Internal Medicine Hematology & Oncology; FAMILY PHYSICIAN Surgery Surgical Oncology
DX: C16.0 Malignant neoplasm of cardia (principal); D50.0 Iron deficiency anemia secondary to blood loss (chronic); C78.7 Secondary malignant neoplasm of liver and intrahepatic bile duct
CPT/HCPCS: 36415; 80053; 84443; 85025